=== PATIENT | female | born 1965 | race Caucasian/White ===

== ENCOUNTER 2016-07-27 10:25 | Outpatient (CLI) ==
[2016-06-09 09:27] VITALS: BMI 21.6
--- NOTE | 2016-07-28 11:33 | MAMMO ---
EXAM: Digital screening mammogram HISTORY: Screening mammogram COMPARISON: Mammogram 04/04/2014 and 02/08/2012 FINDINGS: Bilateral CC and MLO views of the breasts were performed digitally and demonstrate scatte red fibroglandular breast density (25 - 50%). There is no abnormal nodule or calcification. There i s no significant interval change. IMPRESSION: There is no new or suspicious nodule or calcification RECOMMENDATION: Annual screening mammogram BIRADS category 1: Negative
== END 2016-07-27 10:26 | disposition home or self-care (01) ==
LOC: RAD 10:25
PROVIDERS: ATTEND Physician Assistant
DX: Z12.31 Encounter for screening mammogram for malignant neoplasm of breast (principal)

== ENCOUNTER 2016-09-10 13:49 | Emergency (ER) ==
[2016-09-10 14:02] VITALS: BP 87/62; TEMP 99.4; BMI 21.9
== END 2016-09-10 15:55 | disposition left against medical advice (07) ==
LOC: ED 13:49
DX: R05 Cough (principal); R07.89 Other chest pain

== ENCOUNTER 2016-09-12 08:58 | Emergency (ER) ==
[2016-09-12 08:59] VITALS: BMI 21.9
[2016-09-12] MEDS ORDERED: DECADRON 4 MG/ML SDV IM STA (09:09)
[2016-09-12] MEDS ORDERED: TORADOL IM STA (09:12)
--- NOTE | 2016-09-12 09:15 | ED.PDOC ---
General ED Provider: Dr. XAVIER CRUZ Chief Complaint: Cough Stated Complaint: coughing, getting some yellow sputum, hurting all over. Time Seen by Physician: 09:13 Mode of Arrival: Walk-In Information Source: Patient Primary Care Provider: FAROOQ CRUZ Nursing and Triage Documentation Reviewed and Agree: Yes Respiratory Complaint Exam - Respiratory Complaint/Exam Symptoms Are: Still present Timing: Constant Initial Severity: Mild Current Severity: Mild Location: Chest Character: Reports: Productive cough Aggravating: Reports: URI Alleviating: Reports: None Associated Signs and Symptoms: Reports: Dyspnea, Fever, Chest pain, URI, Nasal congestion, Hoarseness. Denies: Rapid breathing, Chills, Pleuritic chest pain, Wheezing, Hemoptysis, Dizziness, Calf pain, Calf swelling, Edema, Sinus discomfort, Vomiting, Sore throat, Weight loss, Decreased oral intake, Increased thirst, Increased appetite, Increased urination Related History: Reports: Similar episode History of Healthcare-Acquired Pneumonia: No Related Surgical History: Reports: None Pulmonary Embolism Risk Factors: None Cardiac Risk Factors: Reports: None Pseudomonas Risk Factors: Reports: None Tuberculosis Risk Factors: Reports: None Status Asthmaticus Risk Factors: Reports: None Home Oxygen Use: No Recent Stress Test: No Recent Echo/LV Function: No Current Antibiotic Use: No Current Asthma Medication Use: No Respiratory Distress: None Inadequate Respiratory Effort: No Dysphagia Present: No Stridor Present: No JVD Present: No Accessory Muscle Use: No Retractions: Not Present Diminished Breath Sounds: No Sinus Tenderness: None Grunting Respirations: No Differential Diagnoses: Pneumonia, Bronchitis, Influenza Review of Systems - Review Of Systems Constitutional: Reports: Fever, Malaise, Weakness Eyes: Reports: No symptoms Ears, Nose, Mouth, Throat: Reports: Nose discharge Respiratory: Reports: Cough Cardiac: Reports: No symptoms GI: Reports: No symptoms : Reports: No symptoms Musculoskeletal: Reports: No symptoms Skin: Reports: No symptoms Neurological: Reports: No symptoms Endocrine: Reports: No symptoms Hematologic/Lymphatic: Reports: No symptoms All Other Systems: Reviewed and Negative Past Medical History - Past Medical History Previously Healthy: Yes Endocrine: Reports: None Cardiovascular: Reports: None, Other Respiratory: Reports: None Hematological: Reports: None Gastrointestinal: Reports: None, GERD Genitourinary: Reports: None, UTI Neuro/Psych: Reports: None, Other (vertigo) Musculoskeletal: Reports: None, Back Pain ( muscle relaxer) Cancer: Reports: None Last Menstrual Period: NA Other Pertinent Past Medical History: Fx coccyx; vertigo, Meniere's - Surgical History General Surgical History: Reports: CABG, Other, Unknown - Family History Family History: Reports: Unknown - Social History Smoking Status: Never smoker Hx Substance Use: No Alcohol Screening: Occasionally Physical Exam - Physical Exam Appearance: Ill-appearing, Thin Ill-appearing: Mild Eyes: LUISITO, EOMI, Conjunctiva clear ENT: Ears normal, Nose normal, Oropharynx normal Respiratory: Airway patent, Breath sounds clear, Breath sounds equal, Respirations nonlabored Cardiovascular: RRR, Pulses normal, No rub, No murmur GI/: Soft, Nontender, No masses, Bowel sounds normal, No Organomegaly Musculoskeletal: Normal strength, ROM intact, No edema, No calf tenderness Skin: Warm, Dry, Normal color Neurological: Sensation intact, Motor intact, Reflexes intact, Cranial nerves intact, Alert, Oriented Psychiatric: Affect appropriate, Mood appropriate Interpretation - Radiology Interpretation Radiology Interpretation By: ED Physician Radiology Results: Negative Exam Interpreted: CXR Critical Care Note - Critical Care Note Total Time (mins): 0 Course - Course Orders, Labs, Meds: Lab Review 09/12/16 09:12 Influenza A (Rapid) Negative Influenza B (Rapid) Positive H Orders Category Date Time Status RAPID FLU A/B Stat LAB 09/12/16 09:12 Completed Dexamethasone 4 mg/ml Inj [Decadron 4 mg/ml Sdv] MEDS 09/12/16 09:09 Discontinued 4 mg IM ONCE STA Ketorolac Tromethamine [Toradol] MEDS 09/12/16 09:12 Discontinued 30 mg IM ONCE STA CHEST, 2 VIEWS PA & LAT Stat RADS 09/12/16 09:09 Taken Medications Discontinued Medications Generic Name Dose Route Start Last Admin Trade Name Freq PRN Reason Stop Dose Admin Dexamethasone Sodium Phosphate 4 mg 09/12/16 09:09 09/12/16 09:20 Decadron 4 Mg/Ml Sdv IM 09/12/16 09:10 4 mg ONCE STA Administration Ketorolac Tromethamine 30 mg 09/12/16 09:12 09/12/16 09:20 Toradol IM 09/12/16 09:13 30 mg ONCE STA Administration Vital Signs: Temp Pulse Resp BP Pulse Ox 09/12/16 08:59 99.0 F 75 18 98/67 97 Departure - Departure Time of Disposition: 10:01 Disposition: HOME SELF-CARE Discharge Problem: URTI (acute upper respiratory infection), Influenza due to influenza virus, type B Instructions: Upper Respiratory Infection (ED) Condition: Stable Pt referred to PMD for follow-up: No Additional Instructions: INCREASE HYDRATION TYLENOL PRN Prescriptions: Oseltamivir Phosphate [Tamiflu] 75 mg PO Q12HR #9 cap Codeine/Promethazine Syrup [Phenergan with Codeine 6.25/10 mg/5 ml] 5 ml PO Q8H #1 bottle Prednisone 10 mg PO BIDWM #14 tablet Allergies/Adverse Reactions: Allergies No Known Allergies Allergy (Verified 06/09/16 09:27) Home Medications: Ambulatory Orders Ranitidine HCl [Zantac] 150 mg PO QDAC 01/13/15 Cyclobenzaprine HCl [Flexeril] 5 mg PO TID PRN #15 tablet 06/09/16 Naproxen [Naprosyn] 500 mg PO Q12HR PRN #30 tablet 06/09/16 Codeine/Promethazine Syrup [Phenergan with Codeine 6.25/10 mg/5 ml] 5 ml PO Q8H #1 bottle 09/12/16 Oseltamivir Phosphate [Tamiflu] 75 mg PO Q12HR #9 cap 09/12/16 Prednisone 10 mg PO BIDWM #14 tablet 09/12/16 Disposition Discussed With: Patient
[2016-09-12 09:29] VITALS: BP 98/67; TEMP 99
[2016-09-12 09:29] LABS: FLU INTERNAL QC INTERNAL QC VALID; RAPID FLU A NEGATIVE (NEGATIVE); RAPID FLU B POSITIVE (NEGATIVE)
[2016-09-12] MEDS ORDERED: TAMIFLU PO STA (10:01)
--- NOTE | 2016-09-12 10:23 | DI ---
Examination: Two radiographic images of the chest. Comparison: CT scan performed 11/06/2015. Reason for study: Cough. FINDINGS: No pneumothorax, pleural effusion, or focal consolidation. The cardiac silhouette is not enlarged. The osseous structures are unremarkable. Impression: No acute cardiopulmonary process.
== END 2016-09-12 10:13 | disposition home or self-care (01) ==
LOC: ED 08:58
DX: J10.1 Influenza due to other identified influenza virus with other respiratory manifestations (principal); J06.9 Acute upper respiratory infection, unspecified
CPT/HCPCS: 87804; 96372; 99284

== ENCOUNTER 2016-11-05 09:58 | Emergency (ER) ==
[2016-11-05 10:04] VITALS: BP 112/68; TEMP 99; BMI 23.1
[2016-11-05] MEDS ORDERED: DECADRON 4 MG/ML SDV IM STA (10:14)
[2016-11-05] MEDS ORDERED: BENADRYL IM STA (10:14)
--- NOTE | 2016-11-05 10:17 | ED.PDOC ---
General ED Provider: Dr. PRESLEY SORENSEN Chief Complaint: Rash Stated Complaint: rash face only Time Seen by Physician: 10:00 (may present at all times ) Mode of Arrival: Walk-In Information Source: Patient Exam Limitations: No limitations Primary Care Provider: FAROOQ CRUZ Nursing and Triage Documentation Reviewed and Agree: Yes (stated she had smelled a bao plant / gonzalez) Skin Complaint Exam - Skin Rash/Itching Complaint/Exam Onset/Duration: rash/ face only itching Symptoms Are: Still present Initial Severity: Mild Current Severity: Mild Potential Exposures: Reports: Unknown Aggravating: Reports: None Alleviating: Reports: None Associated Signs and Symptoms: Denies: Difficulty breathing, Fever, Chills Related History: Similar episode Skin Findings: Present: Normal findings Differential Diagnoses: Allergic Reaction Review of Systems - Review Of Systems Constitutional: Reports: No symptoms Eyes: Reports: No symptoms Ears, Nose, Mouth, Throat: Reports: No symptoms Respiratory: Reports: No symptoms Cardiac: Reports: No symptoms GI: Reports: No symptoms : Reports: No symptoms Musculoskeletal: Reports: No symptoms Skin: Reports: Rash Neurological: Reports: No symptoms Endocrine: Reports: No symptoms Hematologic/Lymphatic: Reports: No symptoms All Other Systems: Reviewed and Negative Past Medical History - Past Medical History Previously Healthy: Yes Endocrine: Reports: None Cardiovascular: Reports: None, Other Respiratory: Reports: None Hematological: Reports: None Gastrointestinal: Reports: None, GERD Genitourinary: Reports: None, UTI Neuro/Psych: Reports: None, Other (vertigo) Musculoskeletal: Reports: None, Back Pain ( muscle relaxer) Cancer: Reports: None Last Menstrual Period: menopause Other Pertinent Past Medical History: Fx coccyx; vertigo, Meniere's - Surgical History General Surgical History: Reports: CABG, Other, Unknown - Family History Family History: Reports: Unknown - Social History Smoking Status: Never smoker Hx Substance Use: No Alcohol Screening: Occasionally - Immunizations Tetanus Shot up to Date: (not sure) Physical Exam - Physical Exam Appearance: Well-appearing, No pain distress, Well-nourished Eyes: LUISITO, EOMI, Conjunctiva clear ENT: Ears normal, Nose normal, Oropharynx normal Respiratory: Airway patent, Breath sounds clear, Breath sounds equal, Respirations nonlabored Cardiovascular: RRR, Pulses normal, No rub, No murmur GI/: Soft, Nontender, No masses, Bowel sounds normal, No Organomegaly Musculoskeletal: Normal strength, ROM intact, No edema, No calf tenderness Skin: Warm, Dry (rash face see photos) Neurological: Sensation intact, Motor intact, Reflexes intact, Cranial nerves intact, Alert, Oriented Psychiatric: Affect appropriate, Mood appropriate Critical Care Note - Critical Care Note Total Time (mins): 0 Course - Course Orders, Labs, Meds: Orders Category Date Time Status Dexamethasone 4 mg/ml Inj [Decadron 4 mg/ml Sdv] MEDS 11/05/16 10:14 Stat 4 mg IM ONCE STA Diphenhydramine Inj [Benadryl] MEDS 11/05/16 10:14 Stat 25 mg IM ONCE STA Medications Discontinued Medications Generic Name Dose Route Start Last Admin Trade Name Freq PRN Reason Stop Dose Admin Dexamethasone Sodium Phosphate 4 mg 11/05/16 10:14 Decadron 4 Mg/Ml Sdv IM 11/05/16 10:15 ONCE STA Diphenhydramine HCl 25 mg 11/05/16 10:14 Benadryl IM 11/05/16 10:15 ONCE STA Vital Signs: Temp Pulse Resp BP Pulse Ox 11/05/16 09:58 99 F 63 20 112/68 98 Departure - Departure Time of Disposition: 10:17 Disposition: HOME SELF-CARE Discharge Problem: Pruritic rash Instructions: Acute Rash (ED) Condition: Good Pt referred to PMD for follow-up: No Additional Instructions: Please call your Family Physician as soon as possible to schedule a follow-up appointment. Prescriptions: Prednisone 40 mg PO DAILYWM #7 tablet Allergies/Adverse Reactions: Allergies No Known Allergies Allergy (Verified 11/05/16 10:05) Home Medications: Ambulatory Orders Ranitidine HCl [Zantac] 150 mg PO QDAC 01/13/15 Cyclobenzaprine HCl [Flexeril] 5 mg PO TID PRN #15 tablet 06/09/16 Naproxen [Naprosyn] 500 mg PO Q12HR PRN #30 tablet 06/09/16 Fluconazole [Diflucan] 150 mg PO DAILY #5 tablet 09/12/16 Prednisone 40 mg PO DAILYWM #7 tablet 11/05/16
== END 2016-11-05 10:54 | disposition home or self-care (01) ==
LOC: ED 09:58
DX: R21 Rash and other nonspecific skin eruption (principal); L29.9 Pruritus, unspecified
CPT/HCPCS: 96372; 99282

== ENCOUNTER 2016-11-28 14:56 | Emergency (ER) ==
[2016-11-28 15:01] VITALS: BP 103/67; TEMP 97.9; BMI 22.4
[2016-11-28] MEDS ORDERED: DECADRON 4 MG/ML SDV IM STA (15:12)
[2016-11-28] MEDS ORDERED: VALIUM SYRINGE IM STA (15:13)
--- NOTE | 2016-11-28 15:17 | ED.PDOC ---
General ED Provider: Dr. XAVIER CRUZ Chief Complaint: Dizziness Stated Complaint: Been dizzi, has h/o minieres, out of medications, Seen Dr SCHAFER IN THE PAST. Time Seen by Physician: 15:15 Mode of Arrival: Walk-In Information Source: Patient Primary Care Provider: FAROOQ CRUZ Nursing and Triage Documentation Reviewed and Agree: Yes Neurological Complaint Exam - Dizziness Complaint/Exam Onset: Gradual Symptoms Are: Still present Timing: Constant Episodes Lasting: Hours Initial Severity: Moderate Current Severity: Moderate Character: Reports: Room spinning, Lightheaded Aggravating: Reports: Position change, Supine to erect, Change in head position Alleviating: Reports: None Associated Signs and Symptoms: Reports: Nausea. Denies: Vomiting, Diaphoresis, Tinnitus, Chest pain, Short of air, Palpitations, Unsteady gait, GI blood loss, Visual changes, Decreased oral intake, Change in medication, Change in diet, OTC meds, Loss of balance Related History: Similar episode Cardiac Risk Factors: Reports: Hypertension CVA Risk Factors: Reports: None Related Surgical History: Reports: None JVD Present: No Carotid Bruit Present: No Rectal Heme Positive: No Focal Weakness: Present: None Focal Sensory Loss: Present: None Gait: Normal [id number]: Normal Findings Romberg Test Positive: No Babinski Sign: Negative Right, Negative Left Heel to Toe Normal: No Carlisle-Hallpike Test Positive: No Differential Diagnoses: Meniere's, Metabolic abnormalities Review of Systems - Review Of Systems Constitutional: Reports: Malaise, Weakness Eyes: Reports: No symptoms Ears, Nose, Mouth, Throat: Reports: No symptoms Respiratory: Reports: No symptoms Cardiac: Reports: No symptoms GI: Reports: No symptoms : Reports: No symptoms Musculoskeletal: Reports: No symptoms Skin: Reports: No symptoms Neurological: Reports: Weakness Endocrine: Reports: No symptoms Hematologic/Lymphatic: Reports: No symptoms All Other Systems: Reviewed and Negative Past Medical History - Past Medical History Previously Healthy: Yes Endocrine: Reports: None Cardiovascular: Reports: None, Other Respiratory: Reports: None Hematological: Reports: None Gastrointestinal: Reports: None, GERD Genitourinary: Reports: None, UTI Neuro/Psych: Reports: None, Other (vertigo) Musculoskeletal: Reports: None, Back Pain ( muscle relaxer) Cancer: Reports: None Last Menstrual Period: 2002 Other Pertinent Past Medical History: Fx coccyx; vertigo, Meniere's - Surgical History General Surgical History: Reports: CABG, Other, Unknown - Family History Family History: Reports: Unknown - Social History Smoking Status: Never smoker Smoking Cessation Counseling Time: > 3 min - 10 min Hx Substance Use: No Alcohol Screening: Occasionally - Immunizations Tetanus Shot up to Date: (unknown) Physical Exam - Physical Exam Appearance: Ill-appearing, No pain distress, Well-nourished, Thin Ill-appearing: Mild Eyes: LUISITO, EOMI, Conjunctiva clear ENT: Ears normal, Nose normal, Oropharynx normal Respiratory: Airway patent, Breath sounds clear, Breath sounds equal, Respirations nonlabored Cardiovascular: RRR, Pulses normal, No rub, No murmur GI/: Soft, Nontender, No masses, Bowel sounds normal, No Organomegaly Musculoskeletal: Normal strength, ROM intact, No edema, No calf tenderness Skin: Warm, Dry, Normal color Neurological: Sensation intact, Motor intact, Reflexes intact, Cranial nerves intact, Alert, Oriented Psychiatric: Affect appropriate, Mood appropriate Critical Care Note - Critical Care Note Total Time (mins): 0 Course - Course Hematology/Chemistry: 11/28/16 15:25 11/28/16 15:25 Orders, Labs, Meds: Lab Review 11/28/16 15:25 WBC 5.78 RBC 4.28 Hgb 13.5 Hct 38.6 MCV 90.2 MCH 31.5 H MCHC 35.0 RDW Coeff of Eulalia 13.4 Plt Count 270 Immature Gran % (Auto) 0.2 Neut % (Auto) 50.4 Lymph % (Auto) 38.6 Ransom % (Auto) 8.3 Eos % (Auto) 2.2 Baso % (Auto) 0.3 Immature Gran # (Auto) 0.0 Neut # 2.9 Lymph # 2.2 Ransom # 0.5 Eos # 0.1 Baso # 0.0 Sodium 139 Potassium 3.7 Chloride 106 Carbon Dioxide 23 Anion Gap 13.7 BUN 8 Creatinine 0.81 Estimated GFR (MDRD) 74.00 BUN/Creatinine Ratio 9.87 Glucose 119 H Calcium 9.5 Total Bilirubin 0.33 AST 17 ALT 7 L Alkaline Phosphatase 89 Total Protein 7.0 Albumin 3.8 Globulin 3.2 Albumin/Globulin Ratio 1.19 Orders Category Date Time Status EKG-(ED ONLY) Stat CARDIO 11/28/16 15:11 Completed CBC W/ AUTO DIFF Stat LAB 11/28/16 15:25 Completed COMPREHENSIVE METABOLIC PANEL Stat LAB 11/28/16 15:25 Completed Dexamethasone 4 mg/ml Inj [Decadron 4 mg/ml Sdv] MEDS 11/28/16 15:12 Discontinued 4 mg IM ONCE STA Diazepam Syringe [Valium Syringe] MEDS 11/28/16 15:13 Discontinued 2 mg IM ONCE STA CT HEAD W/O CONTRAST Stat RADS 11/28/16 15:11 Completed Medications Discontinued Medications Generic Name Dose Route Start Last Admin Trade Name Jimmie PRN Reason Stop Dose Admin Dexamethasone Sodium Phosphate 4 mg 11/28/16 15:12 11/28/16 15:37 Decadron 4 Mg/Ml Sdv IM 11/28/16 15:13 4 mg ONCE STA Administration Diazepam 2 mg 11/28/16 15:13 11/28/16 15:36 Valium Syringe IM 11/28/16 15:14 2 mg ONCE STA Administration Vital Signs: Temp Pulse Resp BP Pulse Ox 11/28/16 14:56 97.9 F 72 20 103/67 98 Departure - Departure Time of Disposition: 14:55 Disposition: HOME SELF-CARE Discharge Problem: Dizziness Instructions: Meniere Disease (ED) Condition: Stable Pt referred to PMD for follow-up: Yes Additional Instructions: Increase hydration F/u at [facility] 3-4 days Prescriptions: Diazepam 2 mg PO BID #10 tablet Prednisone 10 mg PO BIDWM #14 tablet Allergies/Adverse Reactions: Allergies No Known Allergies Allergy (Verified 11/28/16 15:03) Home Medications: Ambulatory Orders Cyclobenzaprine HCl [Flexeril] 5 mg PO TID PRN #15 tablet 06/09/16 Prednisone 40 mg PO DAILYWM #7 tablet 11/05/16 Diazepam 2 mg PO BID #10 tablet 11/28/16 Esomeprazole Magnesium [Nexium] 40 mg PO DAILY 11/28/16 Prednisone 10 mg PO BIDWM #14 tablet 11/28/16 Hydrochlorothiazide 25 mg PO DAILY #50 11/30/16 Valium 2 mg PO 2-3XD PRN #100 11/30/16 Disposition Discussed With: Patient
[2016-11-28 15:31] LABS: BASOPHILS % (AUTO) 0.3 % (0.0-3.0); EOSINOPHILS # (AUTO) 0.1 K/ul (0.0-0.7); EOSINOPHILS % (AUTO) 2.2 % (0.0-7.0); HEMATOCRIT 38.6 % (37.0-47.0); HEMOGLOBIN 13.5 g/dl (12.0-16.0); IMMATURE GRANULOCYTE % (AUTO) 0.2 % (0.0-5.0); LYMPHOCYTES # (AUTO) 2.2 K/uL (0.60-3.4); LYMPHOCYTES % (AUTO) 38.6 (10.0-50.0); MEAN CORPUSCULAR HEMOGLOBIN 31.5 pg (27.0-31.0); MEAN CORPUSCULAR VOLUME 90.2 fl (81.0-99.0); MONOCYTES # (AUTO) 0.5 K/uL (0.4-2.0); MONOCYTES % (AUTO) 8.3 (0-10); NEUTROPHILS # (AUTO) 2.9 K/ul (2.0-6.9); NEUTROPHILS % (AUTO) 50.4; PLATELET COUNT 270 10^3/uL (140-440); RED BLOOD COUNT 4.28 10^6/ul (4.20-5.40); WHITE BLOOD COUNT 5.78 K/ul (4.6-10.2)
--- NOTE | 2016-11-28 15:34 | CT ---
Exam: CT brain without contrast Clinical indication: Dizziness. Comparison: 11/06/2015. TECHNIQUE: Axial unenhanced CT images from the skull base through the brain were obtained. Coronal and sagital reformats were performed. Findings: There is no evidence of intra or extra-axial hemorrhage. There is no evidence of mass, infarct or midline shift. The ventricles and basilar cisterns are within normal limits. The visualized paranasal sinuses and mastoid air cells are clear. The visualized bony structures are unremarkable. Impression: Negative unenhanced CT of the brain.
[2016-11-28 15:51] LABS: ALBUMIN 3.8 g/dL (3.4-5.0); ALBUMIN/GLOBULIN RATIO 1.19; ANION GAP 13.7; BILIRUBIN,TOTAL 0.33 mg/dL (0.00-1.20); BUN/CREATININE RATIO 9.87; CALCIUM 9.5 mg/dL (8.2-10.2); CREATININE 0.81 mg/dL (0.60-1.30); POTASSIUM 3.7 mmol/L (3.5-5.10)
== END 2016-11-28 16:28 | disposition home or self-care (01) ==
LOC: ED 14:56
DX: R42 Dizziness and giddiness (principal); H81.09 Meniere's disease, unspecified ear; R11.0 Nausea; I10 Essential (primary) hypertension; R53.1 Weakness; Z79.899 Other long term (current) drug therapy
CPT/HCPCS: 36415; 80053; 85025; 93005; 93010; 96372; 99283

== ENCOUNTER → 2016-11-30 | Outpatient (POV) ==
[2016-11-28 15:01] VITALS: BMI 22.4
== END ==
LOC: OUTPT 00:01
PROVIDERS: ATTEND Otolaryngology
DX: R42 Dizziness and giddiness (principal)
CPT/HCPCS: 92557; 92567

== ENCOUNTER 2016-12-02 07:56 | Emergency (ER) ==
[2016-12-02 07:57] VITALS: BMI 22.4
[2016-12-02 08:11] VITALS: BP 106/73; TEMP 98.2
[2016-12-02] MEDS ORDERED: ZOFRAN 4 MG/2 ML IVP STA (08:26)
[2016-12-02] MEDS ORDERED: SODIUM CHLORIDE 1,000 ML IV STA ×2 (08:27→10:10)
[2016-12-02 08:39] LABS: BASOPHILS % (AUTO) 0.3 % (0.0-3.0); EOSINOPHILS % (AUTO) 0.4 % (0.0-7.0); HEMATOCRIT 43.1 % (37.0-47.0); HEMOGLOBIN 14.9 g/dl (12.0-16.0); IMMATURE GRANULOCYTE % (AUTO) 0.3 % (0.0-5.0); LYMPHOCYTES # (AUTO) 2.2 K/uL (0.60-3.4); MEAN CORPUSCULAR HGB CONC 34.6 (31.8-35.4); MEAN CORPUSCULAR VOLUME 89.6 fl (81.0-99.0); MONOCYTES # (AUTO) 0.5 K/uL (0.4-2.0); PLATELET COUNT 308 10^3/uL (140-440); RED BLOOD COUNT 4.81 10^6/ul (4.20-5.40); WHITE BLOOD COUNT 6.71 K/ul (4.6-10.2)
[2016-12-02 08:58] LABS: ALBUMIN 4.5 g/dL (3.4-5.0); ALBUMIN/GLOBULIN RATIO 1.25; ANION GAP 15.6; BILIRUBIN,TOTAL 0.61 mg/dL (0.00-1.20); BUN/CREATININE RATIO 13.68; CALCIUM 10.3 mg/dL (8.2-10.2); CREATININE 0.95 mg/dL (0.60-1.30); POTASSIUM 3.6 mmol/L (3.5-5.10); TOTAL PROTEIN 8.1 g/dL (6.4-8.2)
--- NOTE | 2016-12-02 12:18 | ED.PDOC ---
General ED Provider: Dr. PRESLEY SORENSEN Chief Complaint: Dizziness Stated Complaint: dizziness Time Seen by Physician: 08:00 (history of minere) Mode of Arrival: Wheelchair Information Source: Patient Exam Limitations: No limitations Primary Care Provider: FAROOQ CRUZ Nursing and Triage Documentation Reviewed and Agree: Yes Neurological Complaint Exam - Dizziness Complaint/Exam Onset: Gradual Duration: chronic worse today Symptoms Are: Still present Timing: Intermittent Episodes Lasting: Hours Initial Severity: Severe Current Severity: Severe Character: Reports: Lightheaded, Weak Aggravating: Reports: Exertion, Headache Alleviating: Reports: Rest Associated Signs and Symptoms: Reports: Nausea. Denies: Vomiting, Diaphoresis, Tinnitus, Chest pain, Short of air, Palpitations, Unsteady gait, GI blood loss, Visual changes, Decreased oral intake, Change in medication, Change in diet, OTC meds, Loss of balance Related History: Similar episode Cardiac Risk Factors: Reports: None CVA Risk Factors: Reports: None JVD Present: No Carotid Bruit Present: No Rectal Heme Positive: No Glascow Coma Scale (see protocol): 15 Nystagmus Present: No Gag Reflex Present: Yes Meningeal Signs Positive: No Focal Weakness: Present: None Focal Sensory Loss: Present: None Gait: Unable Babinski Sign: Negative Right, Negative Left Differential Diagnoses: Hypovolemia Quality Indicators for Cardiac Chest Pain: EKG in 10min. Quality Indicators for AMI: EKG in 10min. Quality Indicator For Non-Traumatic Chest Pain/Syncope: EKG Performed Review of Systems - Review Of Systems Constitutional: Reports: No symptoms Eyes: Reports: No symptoms Ears, Nose, Mouth, Throat: Reports: No symptoms Respiratory: Reports: No symptoms Cardiac: Reports: No symptoms GI: Reports: No symptoms : Reports: No symptoms Musculoskeletal: Reports: No symptoms Skin: Reports: No symptoms Neurological: Reports: Other (dizziness ) Endocrine: Reports: No symptoms Hematologic/Lymphatic: Reports: No symptoms All Other Systems: Reviewed and Negative Past Medical History - Past Medical History Previously Healthy: Yes Endocrine: Reports: None Cardiovascular: Reports: None, Other Respiratory: Reports: None Hematological: Reports: None Gastrointestinal: Reports: None, GERD Genitourinary: Reports: None, UTI Neuro/Psych: Reports: None, Other (vertigo) Musculoskeletal: Reports: None, Back Pain ( muscle relaxer) Cancer: Reports: None Last Menstrual Period: 14 years Other Pertinent Past Medical History: Fx coccyx; vertigo, Meniere's - Surgical History General Surgical History: Reports: CABG, Other, Unknown - Family History Family History: Reports: Unknown - Social History Smoking Status: Never smoker Hx Substance Use: No Alcohol Screening: Occasionally Physical Exam - Physical Exam Appearance: Well-appearing, No pain distress, Well-nourished Eyes: LUISITO, EOMI, Conjunctiva clear ENT: Ears normal, Nose normal, Oropharynx normal Respiratory: Airway patent, Breath sounds clear, Breath sounds equal, Respirations nonlabored Cardiovascular: RRR, Pulses normal, No rub, No murmur GI/: Soft, Nontender, No masses, Bowel sounds normal, No Organomegaly Musculoskeletal: Normal strength, ROM intact, No edema, No calf tenderness Skin: Warm, Dry, Normal color Neurological: Sensation intact, Motor intact, Reflexes intact, Cranial nerves intact, Alert, Oriented Psychiatric: Affect appropriate, Mood appropriate Interpretation - Er Rn Rate: Normal Rhythm: Sinus Ectopy: None - EKG Interpretation Rate: Normal Rhythm: Sinus Re-Evaluation - Re-Evaluation Time of Re-Evaluation: 10:00 Status: Improved Vital Signs Stable: Yes Pain Level: 0 Appearance: NAD Lungs: Clear Skin: Warm and Dry Neuro: Alert and Oriented X3 CV: RRR - Re-Evaluation Time of Re-Evaluation: 12:19 Status: Improved Vital Signs Stable: Yes Pain Level: 0 Appearance: NAD Skin: Warm and Dry Neuro: Alert and Oriented X3 CV: RRR Critical Care Note - Critical Care Note Total Time (mins): 0 Course - Course Hematology/Chemistry: 12/02/16 08:30 12/02/16 08:30 Orders, Labs, Meds: Lab Review 12/02/16 08:30 WBC 6.71 RBC 4.81 Hgb 14.9 Hct 43.1 MCV 89.6 MCH 31.0 MCHC 34.6 RDW Coeff of Eul[place] 13.3 Plt Count 308 Immature Gran % (Auto) 0.3 Neut % (Auto) 60.0 Lymph % (Auto) 32.0 [place] % (Auto) 7.0 Eos % (Auto) 0.4 Baso % (Auto) 0.3 Immature Gran # (Auto) 0.0 Neut # 4.0 Lymph # 2.2 [place] # 0.5 Eos # 0.0 Baso # 0.0 Sodium 139 Potassium 3.6 Chloride 102 Carbon Dioxide 25 Anion Gap 15.6 BUN 13 Creatinine 0.95 Estimated GFR (MDRD) 62.00 BUN/Creatinine Ratio 13.68 Glucose 109 Calcium 10.3 H Total Bilirubin 0.61 AST 21 ALT 10 L Alkaline Phosphatase 92 Total Protein 8.1 Albumin 4.5 Globulin 3.6 Albumin/Globulin Ratio 1.25 Orders Category Date Time Status EKG-(ED ONLY) Stat CARDIO 12/02/16 08:25 Completed ED IV/MEDIPORT/POWERPORT .ONCE EMERGENCY 12/02/16 08:26 Active CBC W/ AUTO DIFF Stat LAB 12/02/16 08:30 Completed COMPREHENSIVE METABOLIC PANEL Stat LAB 12/02/16 08:30 Completed 0.9 % Sodium Chloride [Saline Flush] MEDS 12/02/16 08:26 Active 1 syr IVF PRN PRN Ondansetron HCl/Pf [Zofran 4 mg/2 ml] MEDS 12/02/16 08:26 Discontinued 4 mg IVP ONCE STA Sodium Chloride 0.9% [Sodium Chloride] 1,000 ml MEDS 12/02/16 10:10 Active IV 30 mls/hr Sodium Chloride 0.9% [Sodium Chloride] 1,000 ml MEDS 12/02/16 08:27 Discontinued IV BOLUS Medications Generic Name Dose Route Start Last Admin Trade Name Freq PRN Reason Stop Dose Admin Sodium Chloride 1,000 mls @ 30 mls/hr 12/02/16 10:10 12/02/16 10:46 Sodium Chloride IV 12/03/16 19:29 30 mls/hr .[id number] STA Administration Sodium Chloride 1 syr 12/02/16 08:26 12/02/16 08:45 Saline Flush IVF 1 syr PRN PRN Administration To flush IV Discontinued Medications Generic Name Dose Route Start Last Admin Trade Name Freq PRN Reason Stop Dose Admin Sodium Chloride 1,000 mls @ 1,000 mls/hr 12/02/16 08:27 12/02/16 08:45 Sodium Chloride IV 12/02/16 09:26 1,000 mls/hr BOLUS STA Administration Ondansetron HCl 4 mg 12/02/16 08:26 12/02/16 08:45 Zofran 4 Mg/2 Ml IVP 12/02/16 08:27 4 mg ONCE STA Administration Vital Signs: Temp Pulse Resp BP Pulse Ox 12/02/16 07:57 98.2 F 75 24 106/73 94 L Departure - Departure Time of Disposition: 12:19 Disposition: HOME SELF-CARE Discharge Problem: Dizziness, Vertigo Instructions: Vertigo (ED), Dizziness (ED) Condition: Good Pt referred to PMD for follow-up: No Additional Instructions: Please call your Family Physician as soon as possible to schedule a follow-up appointment. Allergies/Adverse Reactions: Allergies No Known Allergies Allergy (Verified 12/02/16 08:06) Home Medications: Ambulatory Orders Esomeprazole Magnesium [Nexium] 40 mg PO DAILY 11/28/16 Prednisone 10 mg PO BIDWM #14 tablet 11/28/16 Hydrochlorothiazide 25 mg PO DAILY #50 11/30/16 Valium 2 mg PO 2-3XD PRN #100 11/30/16 Disposition Discussed With: Patient
== END 2016-12-02 13:00 | disposition home or self-care (01) ==
LOC: ED 07:56
DX: R42 Dizziness and giddiness (principal)
CPT/HCPCS: 36415; 80053; 85025; 93005; 93010; 96361; 96374; 99283

== ENCOUNTER 2017-02-05 20:41 | Outpatient (CLI) ==
[2017-02-05 21:12] VITALS: BMI 24.2
== END 2017-02-05 20:42 | disposition home or self-care (01) ==
LOC: AMBL 20:41
PROVIDERS: ATTEND Internal Medicine Geriatric Medicine
DX: R11.2 Nausea with vomiting, unspecified (principal); R10.9 Unspecified abdominal pain; R42 Dizziness and giddiness

== ENCOUNTER 2017-02-05 21:01 | Emergency (ER) ==
[2017-02-05 21:12] VITALS: TEMP 97.9; BMI 24.2
[2017-02-05 21:31] LABS: BASOPHILS % (AUTO) 0.3 % (0.0-3.0); EOSINOPHILS # (AUTO) 0.1 K/ul (0.0-0.7); EOSINOPHILS % (AUTO) 1.2 % (0.0-7.0); IMMATURE GRANULOCYTE % (AUTO) 0.4 % (0.0-5.0); LYMPHOCYTES # (AUTO) 1.9 K/uL (0.60-3.4); LYMPHOCYTES % (AUTO) 18.3 (10.0-50.0); MEAN CORPUSCULAR HEMOGLOBIN 31.6 pg (27.0-31.0); MEAN CORPUSCULAR HGB CONC 35.1 (31.8-35.4); MONOCYTES # (AUTO) 0.7 K/uL (0.4-2.0); MONOCYTES % (AUTO) 7.1 (0-10); NEUTROPHILS # (AUTO) 7.5 K/ul (2.0-6.9); NEUTROPHILS % (AUTO) 72.7; PLATELET COUNT 238 10^3/uL (140-440); RED BLOOD COUNT 4.11 10^6/ul (4.20-5.40); WHITE BLOOD COUNT 10.33 K/ul (4.6-10.2)
[2017-02-05 21:34] VITALS: BP 116/80
--- NOTE | 2017-02-05 21:38 | ED.PDOC ---
General ED Provider: Dr. RANJITH CEDILLO Chief Complaint: Abdominal Pain Stated Complaint: Patient is a 52 year old female who comes by ambulace with complains of Abdominal Pain, N/V, with fever and chills. Time Seen by Physician: 21:00 Mode of Arrival: Ambulance Information Source: Patient, EMT Exam Limitations: No limitations Primary Care Provider: FAROOQ CRUZ Nursing and Triage Documentation Reviewed and Agree: Yes GI Complaint Exam - Abdominal Pain Complaint/Exam Onset: Gradual Duration: 1 day Symptoms Are: Still present Timing: Constant Initial Severity: Severe Current Severity: Severe Location of Pain: Diffuse Radiates To: Denies: Chest, Back, Flank, LLQ, RLQ, Inguinal Character: Reports: Aching, Cramping Aggravating: Reports: Food Alleviating: Reports: None Associated Signs and Symptoms: Reports: Fever, Nausea, Vomiting. Denies: Diaphoresis, Cough, Chest pain, Dizziness, Back pain, Constipation, Blood in stool, Dysuria, Urinary frequency, Decreased urine output, Decreased appetite, Vaginal bleeding, Vaginal discharge, Diarrhea, Sore throat, Decreased activity Review of Systems - Review Of Systems Constitutional: Reports: Fever, Weakness, Loss of appetite Eyes: Reports: No symptoms Ears, Nose, Mouth, Throat: Reports: No symptoms Respiratory: Reports: No symptoms Cardiac: Reports: Lightheadedness GI: Reports: Abdominal pain, Nausea, Vomiting Neurological: Reports: Anxiety Endocrine: Reports: No symptoms Hematologic/Lymphatic: Reports: No symptoms All Other Systems: Reviewed and Negative Past Medical History - Past Medical History Previously Healthy: Yes Endocrine: Reports: None Cardiovascular: Reports: None, Other Respiratory: Reports: None Hematological: Reports: None Gastrointestinal: Reports: GERD Genitourinary: Reports: UTI Neuro/Psych: Reports: None, Other (vertigo) Musculoskeletal: Reports: None, Back Pain ( muscle relaxer) Cancer: Reports: None Last Menstrual Period: several years ago Other Pertinent Past Medical History: Fx coccyx; vertigo, Meniere's - Surgical History General Surgical History: Reports: CABG, Other, Unknown - Family History Family History: Reports: Unknown - Social History Smoking Status: Never smoker Hx Substance Use: No Alcohol Screening: Occasionally - Immunizations Tetanus Shot up to Date: Yes Physical Exam - Physical Exam Appearance: Ill-appearing Ill-appearing: Moderate Pain Distress: Moderate Eyes: LUISITO, EOMI, Conjunctiva clear ENT: Ears normal, Nose normal, Oropharynx normal Neck: Supple Respiratory: Airway patent, Breath sounds clear, Breath sounds equal, Respirations nonlabored Cardiovascular: RRR, Pulses normal, No rub GI/: Soft, No masses, Bowel sounds normal, No Organomegaly, Tender (mild diffuse) Musculoskeletal: Normal strength, ROM intact, No edema, No calf tenderness Skin: Warm Neurological: Sensation intact Psychiatric: Anxious Interpretation - Radiology Interpretation Radiology Interpretation By: Radiologist Radiology Results: Negative Exam Interpreted: CT Scan (Head and abdomen ) - Smt Operator Rate: Normal Rhythm: Sinus Ectopy: None - EKG Interpretation Time of EKG #1: 21:54 Rate: Normal Rhythm: Sinus Ectopy: None [place]: NL ST Segment: Normal Interpretation: [address] block. Q-T interval 492 Re-Evaluation - Re-Evaluation Time of Re-Evaluation: 00:00 Status: Improved Pain Level: better Appearance: NAD Lungs: Clear Neuro: Alert and Oriented X3 Critical Care Note - Critical Care Note Total Time (mins): 40 Course - Course Hematology/Chemistry: 02/05/17 21:25 02/05/17 21:25 Orders, Labs, Meds: Lab Review 02/05/17 02/05/17 21:25 23:00 WBC 10.33 H RBC 4.11 L Hgb 13.0 Hct 37.0 MCV 90.0 MCH 31.6 H MCHC 35.1 RDW Coeff of [place] 12.7 Plt Count 238 Immature Gran % (Auto) 0.4 Neut % (Auto) 72.7 Lymph % (Auto) 18.3 [place] % (Auto) 7.1 Eos % (Auto) 1.2 Baso % (Auto) 0.3 Immature Gran # (Auto) 0.0 Neut # 7.5 H Lymph # 1.9 [place] # 0.7 Eos # 0.1 Baso # 0.0 Sodium 139 Potassium 3.3 L Chloride 103 Carbon Dioxide 23 Anion Gap 16.3 BUN 9 Creatinine 0.91 Estimated GFR (MDRD) 64.00 BUN/Creatinine Ratio 9.89 Glucose 104 Lactic Acid 15.4 Calcium 9.3 Total Bilirubin 0.28 AST 25 ALT 10 L Alkaline Phosphatase 83 Troponin I < 0.0100 Total Protein 7.2 Albumin 3.9 Globulin 3.3 Albumin/Globulin Ratio 1.18 Procalcitonin < 0.05 Urine Color Yellow Urine Clarity Clear Urine pH 7.5 Ur Specific [place] 1.020 Urine Protein Negative Urine Glucose (UA) Negative Urine Ketones Negative Urine Blood Negative Urine Nitrite Negative Urine Bilirubin Negative Urine Urobilinogen 0.2 Ur Leukocyte Esterase Negative Orders Category Date Time Status EKG-(ED ONLY) Stat CARDIO 02/05/17 21:36 Completed IV ACCESS ONCE CARE 02/05/17 21:03 Active ED APPLY O2 .ONCE EMERGENCY 02/05/17 21:03 Active ED PROSPECTING DRILLER HELPER APPLIED .ONCE EMERGENCY 02/05/17 21:03 Active ED VITAL SIGNS Q1HR EMERGENCY 02/05/17 21:03 Active BLOOD CULTURE Stat LAB 02/05/17 21:25 Received CBC W/ AUTO DIFF Stat LAB 02/05/17 21:25 Completed COMPREHENSIVE METABOLIC PANEL Stat LAB 02/05/17 21:25 Completed LACTIC ACID Stat LAB 02/05/17 21:25 Completed PROCALCITONIN Stat LAB 02/05/17 21:25 Completed TROPONIN I Stat LAB 02/05/17 21:25 Completed URINALYSIS C & S IF INDICATED Stat LAB 02/05/17 23:00 Completed Dicyclomine Inj [Bentyl] MEDS 02/05/17 22:10 Discontinued 20 mg IM ONCE STA Ketorolac Tromethamine [Toradol] MEDS 02/05/17 22:09 Discontinued 30 mg IVP ONCE STA Morphine Sulfate [Morphine 4 mg/ml Syringe] MEDS 02/05/17 22:37 Discontinued 4 mg IVP ONCE STA Pantoprazole Sodium [Protonix IV] MEDS 02/05/17 22:38 Discontinued 40 mg IVP ONCE STA Promethazine HCl [Phenergan 25 mg/ml Vial] MEDS 02/05/17 22:41 Discontinued 25 mg .ROUTE .STK-MED ONE Promethazine HCl [Phenergan 25 mg/ml Vial] 25 mg MEDS 02/05/17 22:37 Discontinued 0.9 % Sodium Chloride [Sodium Chloride] 50 ml IV ONCE Sodium Chloride 0.9% [Sodium Chloride] 1,000 ml MEDS 02/05/17 22:37 Discontinued IV BOLUS CHEST, 1V AP ONLY Stat RADS 02/05/17 21:[address] ABDOMEN/PELVIS WO CONTRAST Stat RADS 02/05/17 21:[address] HEAD W/O CONTRAST Stat RADS 02/05/17 21:35 Completed Medications Discontinued Medications Generic Name Dose Route Start Last Admin Trade Name Freq PRN Reason Stop Dose Admin Dicyclomine HCl 20 mg 02/05/17 22:10 02/05/17 22:25 Bentyl IM 02/05/17 22:11 20 mg ONCE STA Administration Promethazine HCl 25 mg/ Sodium 51 mls @ 75 mls/hr 02/05/17 22:37 02/05/17 23: 15 Chloride IV 02/05/17 23:17 75 mls/hr ONCE STA Administration Sodium Chloride 1,000 mls @ 1,000 mls/hr 02/05/17 22:37 02/05/17 23:15 Sodium Chloride IV 02/05/17 23:36 1,000 mls/hr BOLUS STA Administration Ketorolac Tromethamine 30 mg 02/05/17 22:09 02/05/17 22:25 Toradol IVP 02/05/17 22:10 30 mg ONCE STA Administration Morphine Sulfate 4 mg 02/05/17 22:37 02/05/17 23:14 Morphine 4 Mg/Ml Syringe IVP 02/05/17 22:38 4 mg ONCE STA Administration Pantoprazole Sodium 40 mg 02/05/17 22:38 02/05/17 23:15 Protonix Iv IVP 02/05/17 22:39 40 mg ONCE STA Administration Vital Signs: Temp Pulse Resp BP Pulse Ox 02/05/17 21:33 97.9 F 68 18 116/80 97 02/05/17 21:01 97.9 F 95 H 24 130/79 98 Departure - Departure Time of Disposition: 00:00 Disposition: HOME SELF-CARE Discharge Problem: Abdominal pain, Vertigo Instructions: Vertigo (ED), Abdominal Pain (ED) Condition: Fair Pt referred to PMD for follow-up: Yes Additional Instructions: Push fluids Rest Follow up with PCP in 3 days Take medications for Vertigo as needed Prescriptions: Dicyclomine HCl [Bentyl] 10 mg PO TID PRN #15 capsule PRN Reason: abdominal cramping Meclizine HCl 12.5 mg PO TID PRN #14 tablet PRN Reason: Dizziness Ondansetron HCl [Zofran Tab] 8 mg PO Q8H PRN #15 tablet PRN Reason: Nausea / Vomiting Allergies/Adverse Reactions: Allergies No Known Allergies Allergy (Verified 02/05/17 21:10) Home Medications: Ambulatory Orders Esomeprazole Magnesium [Nexium] 40 mg PO DAILY 11/28/16 Prednisone 10 mg PO BIDWM #14 tablet 11/28/16 Hydrochlorothiazide 25 mg PO DAILY #50 11/30/16 Ondansetron HCl [Zofran] 4 mg PO BID #6 tablet 12/02/16 Dicyclomine HCl [Bentyl] 10 mg PO TID PRN #15 capsule 02/05/17 Meclizine HCl 12.5 mg PO TID PRN #14 tablet 02/05/17 Ondansetron HCl [Zofran Tab] 8 mg PO Q8H PRN #15 tablet 02/05/17 Disposition Discussed With: Patient
[2017-02-05 21:50] LABS: ALBUMIN 3.9 g/dL (3.4-5.0); ALBUMIN/GLOBULIN RATIO 1.18; ANION GAP 16.3; BILIRUBIN,TOTAL 0.28 mg/dL (0.00-1.20); BUN/CREATININE RATIO 9.89; CALCIUM 9.3 mg/dL (8.2-10.2); CREATININE 0.91 mg/dL (0.60-1.30); POTASSIUM 3.3 mmol/L (3.5-5.10); TOTAL PROTEIN 7.2 g/dL (6.4-8.2)
--- NOTE | 2017-02-05 22:04 | CT ---
EXAM: CT of the head without contrast. HISTORY: Dizziness. COMPARISON: None. TECHNIQUE: Contiguous axial images at 5 mm intervals were obtained from the base of the skull to th e vertex of the calvarium. No contrast was given. FINDINGS: The CSF containing spaces are normal in size and position. There are no extraaxial fluid collections. There is no evidence of an acute intracranial hemorrhage. There are no masses or mas s effect. No areas of abnormal density are identified. Sharma-white differentiation is normal. Th e osseous and extracranial soft tissues are normal. IMPRESSION: No acute intracranial abnormality.
[2017-02-05] MEDS ORDERED: TORADOL IVP STA (22:09)
[2017-02-05] MEDS ORDERED: BENTYL IM STA (22:10)
--- NOTE | 2017-02-05 22:20 | CT ---
Exam: CT of the abdomen and pelvis without contrast History: Abdominal pain Technique: [address] of the abdomen and pelvis without intravascular contrast FINDINGS: The lung bases are clear. Sub centimeter liver cysts. The liver is unremarkable otherwis e. The adrenals, pancreas and spleen are unremarkable. There is a small hiatus hernia. The gallbla dder appears normal. Nonobstructing calcifications of the right kidney with maximum diameter of 3-4 mm. The left kidney and collecting system unremarkable. The right ureter is clear. The appendix is normal. Bowel loops demonstrate normal caliber. No inflamatory change seen in the mesentery or re troperitoneum. Atherosclerotic calcification of the aorta without aneurysm. Pelvic genitourinary structures appear normal. Pelvic bowel loops are unremarkable. No inflammatory change in the pelvic fat. No acute abnormality of the abdominal or pelvic skeleton. Impression: 1. No inflammatory process, bowel or urinary obstruction is seen. 2. Nonobstructing nephrolithiasis in the right kidney
[2017-02-05] MEDS ORDERED: PHENERGAN 25 MG/ML VIAL 25 MG in SODIUM CHLORIDE 50 ML IV STA (22:37)
[2017-02-05] MEDS ORDERED: SODIUM CHLORIDE 1,000 ML IV STA (22:37)
[2017-02-05] MEDS ORDERED: MORPHINE 4 MG/ML SYRINGE IVP STA (22:37)
[2017-02-05] MEDS ORDERED: PROTONIX IV IVP STA (22:38)
[2017-02-05] MEDS ORDERED: PHENERGAN 25 MG/ML VIAL ONE (22:41)
[2017-02-05 23:10] LABS: BILIRUBIN,URINE Negative (NEGATIVE); KETONES,URINE Negative (NEGATIVE); LEUKOCYTE ESTERASE ,URINE Negative (NEGATIVE); NITRITE,URINE Negative (NEGATIVE); PH,URINE 7.5 (5-9); PROTEIN,URINE Negative (NEGATIVE); URINE, BLOOD Negative (NEGATIVE)
[2017-02-05 23:11] LABS: ADD URINE MICROSCOPIC NO
--- NOTE | 2017-02-06 03:33 | DI ---
EXAM: Chest, single view 02/05/2017 HISTORY: Fever COMPARISON: 09/12/2016 FINDINGS / IMPRESSION: Cardiomediastinal countours appear stable. There is no focal pulmonary cons olidation. No pleural effusion or pneumothorax. No acute cardiopulmonary process.
== END 2017-02-06 00:40 | disposition home or self-care (01) ==
LOC: ED 21:01
DX: R10.84 Generalized abdominal pain (principal); R42 Dizziness and giddiness; R11.2 Nausea with vomiting, unspecified
CPT/HCPCS: 36415; 80053; 81001; 83605; 84145; 84484; 85025; 87040; 93005; 93010; 96361; 96365; 96372; 96375; 99282; 99283

== ENCOUNTER → 2017-05-10 | Outpatient (POV) | LOC: OUTPT 00:01 | PROVIDERS: ATTEND Otolaryngology | DX: R42 Dizziness and giddiness (principal); H91.90 Unspecified hearing loss, unspecified ear ==

== ENCOUNTER 2017-11-20 22:09 | Emergency (ER) ==
[2017-11-20] MEDS ORDERED: ZOFRAN 4 MG/2 ML IM STA (22:12)
[2017-11-20] MEDS ORDERED: MORPHINE 4 MG/ML SYRINGE IM STA (22:12)
--- NOTE | 2017-11-20 22:15 | ED.PDOC ---
General ED Provider: Dr. ANKIT GRIFFIN-ER Chief Complaint: Toe Pain/Injury Stated Complaint: i accidentally kicked a cardboard box full of books Time Seen by Physician: 22:13 Mode of Arrival: Walk-In Information Source: Patient Exam Limitations: No limitations Primary Care Provider: FAROOQ CRUZ Nursing and Triage Documentation Reviewed and Agree: Yes Reviewed sepsis parameters & appropriate labs ordered?: Yes System Inflammatory Response Syndrome: Not Applicable Sepsis Protocol: For patient's 13 years and over: Temp is 96.8 and below OR 101 and greater Pulse >90 BPM Resp >20/minute Acutely Altered Mental Status Are patient's symptoms suggestive of a new infection, such as: -Pneumonia -Skin, Soft Tissue -Endocarditis -UTI -Bone, Joint Infection -Implantable Device -Acute Abdominal Infection -Wound Infection -Meningitis -Blood Stream Catheter Infection -Unknown Musculoskeletal Complaint Exam - Ankle/Foot Complaint/Exam Location of Injury: Reports: Right, Toe #4 Mechanism of Injury: Reports: Trauma Onset/Duration: 45 min Symptoms Are: Reports: Still present Onset of Pain: Reports: Immediate Initial Severity: Mild Current Severity: Moderate Location: Reports: Discrete Character: Reports: Dull, Aching Aggravating: Reports: Movement, Weight bearing Able to Bear Weight: No Associated Signs and Symptoms: Reports: Swelling Lower Extremity Findings: Present: Swelling, Tenderness, Limited range of motion Achilles Tendon Abnormality: No Tenderness: Present: Digits Differential Diagnosis: Dislocation, Closed Fracture Review of Systems - Review Of Systems Constitutional: Reports: No symptoms Eyes: Reports: No symptoms Ears, Nose, Mouth, Throat: Reports: No symptoms Respiratory: Reports: No symptoms Cardiac: Reports: No symptoms GI: Reports: No symptoms : Reports: No symptoms Musculoskeletal: Reports: Joint pain, Muscle pain Skin: Reports: No symptoms Neurological: Reports: No symptoms Endocrine: Reports: No symptoms Hematologic/Lymphatic: Reports: No symptoms All Other Systems: Reviewed and Negative Past Medical History - Past Medical History Previously Healthy: Yes Endocrine: Reports: None Cardiovascular: Reports: None, Other Respiratory: Reports: None Hematological: Reports: None Gastrointestinal: Reports: GERD Genitourinary: Reports: UTI Neuro/Psych: Reports: None, Other (vertigo) Musculoskeletal: Reports: None, Back Pain ( muscle relaxer) Cancer: Reports: None Other Pertinent Past Medical History: Fx coccyx; vertigo, Meniere's - Surgical History General Surgical History: Reports: CABG, Other, Unknown - Family History Family History: Reports: Unknown - Social History Smoking Status: Never smoker Hx Substance Use: No Alcohol Screening: Occasionally Physical Exam - Physical Exam Appearance: Well-appearing, No pain distress, Well-nourished Pain Distress: Moderate Eyes: LUISITO, EOMI, Conjunctiva clear ENT: Ears normal, Nose normal, Oropharynx normal Neck: Supple Respiratory: Airway patent, Breath sounds clear, Breath sounds equal, Respirations nonlabored Cardiovascular: RRR, Pulses normal, No rub, No murmur GI/: Soft, Nontender, No masses, Bowel sounds normal, No Organomegaly Musculoskeletal: Normal strength, Limited ROM Skin: Warm, Dry, Normal color Neurological: Sensation intact, Motor intact, Reflexes intact, Cranial nerves intact, Alert, Oriented Psychiatric: Affect appropriate, Mood appropriate Interpretation - Radiology Interpretation Radiology Interpretation By: ED Physician Radiology Results: Positive Procedures - Splinting Location: right 4th toe Splint: Gutter splint Pre-Proc Neuro Vasc Exam: Normal Post-Proc Neuro Vasc Exam: Normal Critical Care Note - Critical Care Note Total Time (mins): 0 Course - Course Orders, Labs, Meds: Orders Category Date Time Status Cast shoe [ED SPLINT APPLICATION] .ONCE EMERGENCY 11/20/17 22:27 Active Splint [ED SPLINT APPLICATION] .ONCE EMERGENCY 11/20/17 22:27 Active Morphine Sulfate [Morphine 4 mg/ml Syringe] MEDS 11/20/17 22:12 Discontinued 4 mg IM ONCE STA Ondansetron HCl/Pf [Zofran 4 mg/2 ml] MEDS 11/20/17 22:12 Discontinued 4 mg IM ONCE STA TOE(S), RIGHT MIN 2V Stat RADS 11/20/17 22:12 Ordered Medications Discontinued Medications Generic Name Dose Route Start Last Admin Trade Name Freq PRN Reason Stop Dose Admin Morphine Sulfate 4 mg 11/20/17 22:12 Morphine 4 Mg/Ml Syringe IM 11/20/17 22:13 ONCE STA Ondansetron HCl 4 mg 11/20/17 22:12 Zofran 4 Mg/2 Ml IM 11/20/17 22:13 ONCE STA Vital Signs: Temp Pulse Resp BP Pulse Ox 11/20/17 22:10 98.6 F 80 24 94/67 98 Departure - Departure Time of Disposition: 22:28 Disposition: HOME SELF-CARE Discharge Problem: Toe fracture, right Qualifiers: Encounter type: initial encounter Toe: lesser toe Fracture type: closed Phalanx : middle Fracture alignment: displaced Qualified Code(s): S92.521A - Displaced fracture of middle phalanx of right lesser toe(s), initial encounter for closed fracture Instructions: Toe Fracture (ED) Condition: Good Pt referred to PMD for follow-up: Yes IPMP verified?: No Additional Instructions: norco 7.5mg q 4hrs prm pain #10---f/u with ortho clinic tomorrow with copy of xray Allergies/Adverse Reactions: Allergies No Known Allergies Allergy (Verified 11/20/17 22:15) Home Medications: Ambulatory Orders Dicyclomine HCl [Bentyl] 10 mg PO TID PRN #15 capsule 02/05/17 Cyclobenzaprine HCl [Flexeril] 10 mg PO BEDTIME 11/20/17 Diazepam [Valium] 2 mg PO Q8-12H PRN 11/20/17 Esomeprazole Magnesium [Nexium] 40 mg PO BID 11/20/17 Disposition Discussed With: Patient
[2017-11-20 22:19] VITALS: BP 94/67; TEMP 98.6; BMI 23.6
--- NOTE | 2017-11-21 07:59 | DI ---
EXAM: Right foot three views HISTORY: Toe injury COMPARISON: None. FINDINGS: There is no acute fracture, dislocation or bony erosion. IMPRESSION: No acute findings
== END 2017-11-20 22:59 | disposition home or self-care (01) ==
LOC: ED 22:09
DX: S92.521A Displaced fracture of middle phalanx of right lesser toe(s), initial encounter for closed fracture (principal); W22.8XXA Striking against or struck by other objects, initial encounter
CPT/HCPCS: 96372; 99283

== ENCOUNTER 2017-11-22 08:43 | Outpatient (POV) | END 2017-11-22 17:00 | LOC: OUTPT 08:43 | PROVIDERS: ATTEND Otolaryngology | DX: H91.92 Unspecified hearing loss, left ear (principal) ==

== ENCOUNTER 2018-03-06 08:56 | Outpatient (CLI) | END 2018-03-06 08:57 | disposition home or self-care (01) | LOC: CAR 08:56 | PROVIDERS: ATTEND Nurse Practitioner Family | DX: R07.9 Chest pain, unspecified (principal); I49.9 Cardiac arrhythmia, unspecified; R53.83 Other fatigue; Z98.890 Other specified postprocedural states | CPT/HCPCS: 36415; 80053; 80061; 84443; 85025; 93005; 93010 ==

== ENCOUNTER 2018-03-08 09:01 | Outpatient (CLI) ==
--- NOTE | 2018-03-10 10:03 | MAMMO ---
EXAM: Bilateral digital screening mammogram (2-D and 3-D) History: Screening Comparison: Bilateral mammogram 07/27/2016 Findings: MLO and CC views of bilateral breasts demonstrate scattered fibroglandular breast parenchy ma. CAD was reviewed by the radiologist. Tomosynthesis was performed. There are no dominant masses , no suspicious microcalcifications and no architectural distortions Impression: Stable negative mammogram. Recommend followup routine screening mammography in 1 year. BIRADS 1
== END 2018-03-08 09:02 | disposition home or self-care (01) ==
LOC: RAD 09:01
PROVIDERS: ATTEND Nurse Practitioner Family
DX: Z12.31 Encounter for screening mammogram for malignant neoplasm of breast (principal)
CPT/HCPCS: 77067

== ENCOUNTER 2018-04-07 07:53 | Emergency (ER) ==
[2018-04-07 07:59] VITALS: BP 109/72; TEMP 98.2; BMI 23.3
--- NOTE | 2018-04-07 08:32 | DI ---
EXAM: RIGHT HAND, 3 VIEWS HISTORY: Pain. FINDINGS: There is an acute fracture of the fifth metacarpal bone, distal third aspect with moderate posterior angulation and mild comminution. No intra-articular extension. No other fractures are se en. Joints are intact. IMPRESSION: Fifth metacarpal fracture.
--- NOTE | 2018-04-07 08:33 | DI ---
EXAM: RIGHT WRIST THREE VIEWS HISTORY: Pain after injury FINDINGS / IMPRESSION: The bones of the wrist are intact. No joint dislocation. No significant art hropathy. Redemonstration of fifth metacarpal fracture.
[2018-04-07] MEDS ORDERED: LIDOCAINE HCL 1% SDV SUBCUT STA (08:52)
[2018-04-07] MEDS ORDERED: MORPHINE 2 MG/ML SYRINGE IM STA (09:01)
[2018-04-07] MEDS ORDERED: ZOFRAN 4 MG/2 ML IM STA (09:01)
--- NOTE | 2018-04-07 09:15 | ED.PDOC ---
General ED Provider: Dr. PRESLEY SORENSEN Chief Complaint: Hand Pain/Injury Stated Complaint: hand/ wrist injury 1 day ago Time Seen by Physician: 08:00 (punched a wall) Mode of Arrival: Walk-In Information Source: Patient Exam Limitations: No limitations Primary Care Provider: AKILAH HWANG Nursing and Triage Documentation Reviewed and Agree: Yes Does patient meet sepsis criteria?: Yes If yes, has appropriate treatment been initiated?: No System Inflammatory Response Syndrome: Not Applicable Sepsis Protocol: For patient's 13 years and over: Temp is 96.8 and below OR 101 and greater Pulse >90 BPM Resp >20/minute Acutely Altered Mental Status Are patient's symptoms suggestive of a new infection, such as: -Pneumonia -Skin, Soft Tissue -Endocarditis -UTI -Bone, Joint Infection -Implantable Device -Acute Abdominal Infection -Wound Infection -Meningitis -Blood Stream Catheter Infection -Unknown Musculoskeletal Complaint Exam - Hand/Wrist Complaint/Exam Location of Pain: Reports: Right, Hand, Digit #5 Mechanism of Injury: Reports: Trauma (punched a wall) Onset/Duration: 1 day Symptoms Are: Still present Onset of Pain: Reports: Immediate Location: Reports: Discrete (5th mcp) Character: Reports: Aching, Spasmodic Alleviating: Reports: Rest Aggravating: Reports: Movement Associated Signs and Symptoms: Reports: Swelling, Bruising Dominant Hand: Right Related Surgical History: Reports: None Hand/Wrist Findings: Present: Swelling, Ecchymosis Compartment Syndrome Risk Factors: Present: Pain Differential Diagnoses: Closed Fracture Review of Systems - Review Of Systems Constitutional: Reports: No symptoms Eyes: Reports: No symptoms Ears, Nose, Mouth, Throat: Reports: No symptoms Respiratory: Reports: No symptoms Cardiac: Reports: No symptoms GI: Reports: No symptoms : Reports: No symptoms Musculoskeletal: Reports: Joint pain (pain 5th MCP) Skin: Reports: No symptoms Neurological: Reports: No symptoms Endocrine: Reports: No symptoms Hematologic/Lymphatic: Reports: No symptoms All Other Systems: Reviewed and Negative Past Medical History - Past Medical History Previously Healthy: Yes Endocrine: Reports: None Cardiovascular: Reports: None, Other Respiratory: Reports: None Hematological: Reports: None Gastrointestinal: Reports: GERD Genitourinary: Reports: UTI Neuro/Psych: Reports: None, Other (vertigo) Musculoskeletal: Reports: None, Back Pain ( muscle relaxer) Cancer: Reports: None Last Menstrual Period: n/a Other Pertinent Past Medical History: Fx coccyx; vertigo, Meniere's - Surgical History General Surgical History: Reports: CABG, Other, Unknown - Family History Family History: Reports: Unknown - Social History Smoking Status: Never smoker Hx Substance Use: No Alcohol Screening: Occasionally Physical Exam - Physical Exam Appearance: Well-appearing, No pain distress, Well-nourished Eyes: LUISITO, EOMI, Conjunctiva clear ENT: Ears normal, Nose normal, Oropharynx normal Respiratory: Airway patent, Breath sounds clear, Breath sounds equal, Respirations nonlabored Cardiovascular: RRR, Pulses normal, No rub, No murmur GI/: Soft, Nontender, No masses, Bowel sounds normal, No Organomegaly Musculoskeletal: Limited ROM (RIGHT HAND ) Skin: Warm, Dry, Normal color Neurological: Sensation intact, Motor intact, Reflexes intact, Cranial nerves intact, Alert, Oriented Psychiatric: Affect appropriate, Mood appropriate Interpretation - Radiology Interpretation Radiology Interpretation By: Radiologist Radiology Results: Positive (BOXERS FRACTURE MODERATELY ANGULATED , POST REDUCTION LESS ANGULATION NOTED) Procedures - Additional Procedures Additional Procedures: Digital Nerve Block (1ML 1% PLAIN LIDOCANE USED THE 5TH MCP HEAD PUSHED GENTLY TOWARD THE PALM POST REDUCTION FILM POSTIVE FOR BETTER POSITION) Critical Care Note - Critical Care Note Total Time (mins): 0 Course - Course Orders, Labs, Meds: Orders Category Date Time Status Lidocaine HCl/Pf [Lidocaine HCl 1% Sdv] MEDS 04/07/18 08:52 Discontinued 5 ml SUBCUT ONCE STA Morphine Sulfate [Morphine 2 mg/ml Syringe] MEDS 04/07/18 09:01 Discontinued 4 mg IM ONCE STA Ondansetron HCl/Pf [Zofran 4 mg/2 ml] MEDS 04/07/18 09:01 Discontinued 4 mg IM ONCE STA HAND, RIGHT 3 VIEWS Stat RADS 04/07/18 08:07 Completed HAND, RIGHT 3 VIEWS Stat RADS 04/07/18 08:59 Ordered WRIST, RIGHT 3 VIEWS Stat RADS 04/07/18 08:07 Completed Medications Discontinued Medications Generic Name Dose Route Start Last Admin Trade Name Freq PRN Reason Stop Dose Admin Lidocaine HCl 5 ml 04/07/18 08:52 Lidocaine Hcl 1% Sdv SUBCUT 04/07/18 08:53 ONCE STA Morphine Sulfate 4 mg 04/07/18 09:01 Morphine 2 Mg/Ml Syringe IM 04/07/18 09:02 ONCE STA Ondansetron HCl 4 mg 04/07/18 09:01 Zofran 4 Mg/2 Ml IM 04/07/18 09:02 ONCE STA Vital Signs: Temp Pulse Resp BP Pulse Ox 04/07/18 07:54 98.2 F 68 20 109/72 98 Departure - Departure Time of Disposition: 09:18 (CLOSED REDUCTION WAS ATTEMPTED UNDER FINISHING MACHINE TENDER ) Disposition: HOME SELF-CARE Discharge Problem: Boxers fracture Qualifiers: Encounter type: initial encounter Fracture type: closed Qualified Code(s): S62.339A - Displaced fracture of neck of unspecified metacarpal bone, initial encounter for closed fracture Instructions: Hand Fracture (ED), Closed Reduction (ED) Condition: Good Pt referred to PMD for follow-up: Yes IPMP verified?: No Additional Instructions: Please call your Family Physician as soon as possible to schedule a follow-up appointment.YOUR FINGER IS BROKEN I SHOWN YOU IN THE FILM PLEASE KEEP SPLINT ON AND SEE THE CLINIC Allergies/Adverse Reactions: Allergies No Known Allergies Allergy (Verified 04/07/18 07:59) Home Medications: Ambulatory Orders Hydrochlorothiazide 12.5 mg PO DAILY 11/29/17 Diazepam 2 mg PO Q8-12H #100 03/01/18 Esomeprazole Magnesium 40 mg PO DAILY #90 03/01/18
--- NOTE | 2018-04-07 09:31 | DI ---
EXAM: Radiographs, right and HISTORY: Status post reduction of the fifth metacarpal fracture. COMPARISON: Earlier the same day at 8:13 a.m.. TECHNIQUE: Three views. FINDINGS/IMPRESSION: There may be slightly decreased volar angulation of the fifth metacarpal major distal fracture fragme nt. Mild displacement is otherwise unchanged. No new fractures are seen.
== END 2018-04-07 09:30 | disposition home or self-care (01) ==
LOC: ED 07:53
DX: S62.306A Unspecified fracture of fifth metacarpal bone, right hand, initial encounter for closed fracture (principal); W22.8XXA Striking against or struck by other objects, initial encounter
CPT/HCPCS: 99283

== ENCOUNTER 2018-07-26 13:21 | Outpatient (POV) | END 2018-07-26 17:00 | LOC: OUTPT 13:21 | PROVIDERS: ATTEND Otolaryngology | DX: H91.90 Unspecified hearing loss, unspecified ear (principal) | CPT/HCPCS: 92557; 92567 ==

== ENCOUNTER 2018-10-10 09:23 | Outpatient (POV) | END 2018-10-10 17:00 | LOC: OUTPT 09:23 | PROVIDERS: ATTEND Otolaryngology | DX: H91.90 Unspecified hearing loss, unspecified ear (principal) | CPT/HCPCS: 92557; 92567 ==

== ENCOUNTER 2018-10-16 10:22 | Outpatient (CLI) ==
--- NOTE | 2018-10-16 11:14 | DI ---
Exam: Right hand three-view. HISTORY: Unspecified fracture of fifth metacarpal bone, right hand, sequela. Comparison: 04/07/2018. Findings: Three images of the right hand are submitted. The lateral view is limited by positioning. There has been interval healing of the previously noted fifth metacarpal fracture. No acute fractu re or dislocation is identified. There is no osseous erosion or radiodense foreign body. Mild degen erative findings are noted in the second and third distal interphalangeal joints. No focal soft tiss ue swelling is seen. Impressions: Interval osseous healing of the previously noted fifth metacarpal fracture. No acute fracture or dislocation.
== END 2018-10-16 10:23 | disposition home or self-care (01) ==
LOC: RAD 10:22
PROVIDERS: ATTEND Nurse Practitioner Family
DX: S62.306S Unspecified fracture of fifth metacarpal bone, right hand, sequela (principal); R07.9 Chest pain, unspecified; R06.02 Shortness of breath; Z98.890 Other specified postprocedural states
CPT/HCPCS: 36415; 80053; 80061; 84443; 85025; 93005; 93010

== ENCOUNTER 2018-10-16 10:29 | Outpatient (CLI) | END 2018-10-16 10:30 | disposition home or self-care (01) | LOC: RHC-LAB 10:29 | PROVIDERS: ATTEND Nurse Practitioner Family | DX: R06.02 Shortness of breath (principal); E78.5 Hyperlipidemia, unspecified; Z98.890 Other specified postprocedural states | CPT/HCPCS: 36415; 80053; 80061; 84443; 85025 ==

== ENCOUNTER 2018-10-30 06:25 | Outpatient (CLI) ==
--- NOTE | 2018-10-31 10:08 | ECHO2D ---
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 Atrium dimensions 1.9-3.8 3.9 Post. Wall thickness 0.8-1.1 1.0 IV septum (thickness) 0.7-1.2 1.1 Post. Wall excursion 0.72-1.3 NORMAL Septal motion -- Systolic motion R. Ventricular cavity 1.5-2.0 NORMAL LVEF 60% 40% Paradoxical septal wall motion MAYBE 2-D : 2-D M Mode Echocardiogram was performed using apical four chamber and left parasternal long and short axis views. Mitral, tricuspid and aortic valves appear to be normal. Contractility of the left ventricle seems to be normal, so is the cavity size. Left atrial cavity size and aortic root appear to be normal. There is no pericardial effusion. There is no thrombus noted in the left ventricular or left aortic cavity. No mitral valve prolapse noted. AKINETIC SEPTAL WALL M-MODE: MV: NORMAL AV: NORMAL TV: NORMAL PV: CHAMBER SIZE: NORMAL WALL MOTION: AKINETIC TO MILDLY PARADOXICAL SEPTAL WALL PERICARDIUM: NORMAL INTERPRETATION: 1. AKINETIC TO PARADOXICAL SEPTAL WALL (S/P CARDIAC SURGERY AT AGE 7) 2. NORMAL LEFT VENTRICLE SIZE AND NORMAL VALVES 3. LEFT VENTRICULAR EJECTION FRACTION 40% MTDD
== END 2018-10-30 06:26 | disposition home or self-care (01) ==
LOC: CAR 06:25
PROVIDERS: ATTEND Nurse Practitioner Family
DX: I49.9 Cardiac arrhythmia, unspecified (principal); I44.7 Left bundle-branch block, unspecified; Z98.890 Other specified postprocedural states

== ENCOUNTER 2018-11-10 12:56 | Emergency (ER) ==
[2018-11-10 13:04] VITALS: BP 95/57; TEMP 97.5; BMI 20.7
--- NOTE | 2018-11-10 13:40 | DI ---
EXAM: Four views of the left knee. History: Left knee trauma. Findings: No acute fracture or dislocation. No abnormal calcifications or radiopaque foreign bodies . Joint spaces are preserved. Chondrocalcinosis. Impression: 1. No acute osseous abnormality. 2. Chondrocalcinosis
[2018-11-10] MEDS ORDERED: TENIVAC IM ONE (13:53)
--- NOTE | 2018-11-10 14:03 | ED.PDOC ---
General ED Provider: Dr. PRESLEY SORENSEN Chief Complaint: Laceration Stated Complaint: laceration left knee with a flying debri while cutting grass today Time Seen by Physician: 13:00 () Mode of Arrival: Wheelchair Information Source: Patient Exam Limitations: No limitations Primary Care Provider: AKILAH HWANG Nursing and Triage Documentation Reviewed and Agree: Yes Does patient meet sepsis criteria?: No System Inflammatory Response Syndrome: Not Applicable Sepsis Protocol: For patient's 13 years and over: Temp is 96.8 and below OR 101 and greater Pulse >90 BPM Resp >20/minute Acutely Altered Mental Status Are patient's symptoms suggestive of a new infection, such as: -Pneumonia -Skin, Soft Tissue -Endocarditis -UTI -Bone, Joint Infection -Implantable Device -Acute Abdominal Infection -Wound Infection -Meningitis -Blood Stream Catheter Infection -Unknown Trauma/Injury Complaint Exam - Trauma Complaint/Exam Location of Pain or Injury: Reports: Other (left knee ) Onset/Duration: today Symptoms Are: Still present Timing of Treatment: Immediate Initial Severity: Mild Current Severity: Mild Character: Reports: Aching Aggravating: Reports: None Alleviating: Reports: None Associated Signs and Symptoms: Denies: LOC, Confusion, Memory loss, Lethargy, Vomiting, Bleeding, Bruising, Swelling, Extremity disuse, Painful respiration, Hoarseness, Dysphagia, Hemoptysis, Significant blood loss Related Surgical History: Reports: None Nexus Low Risk Criteria: No post-midline CS tender, No evidence of intoxicat., No Altered LOC, No focal neuro deficit, No distracting injuries Glascow Coma Scale (see protocol): 15 Review of Systems - Review Of Systems Constitutional: Reports: No symptoms Eyes: Reports: No symptoms Ears, Nose, Mouth, Throat: Reports: No symptoms Respiratory: Reports: No symptoms Cardiac: Reports: No symptoms GI: Reports: No symptoms : Reports: No symptoms Musculoskeletal: Reports: No symptoms Skin: Reports: No symptoms Neurological: Reports: No symptoms Endocrine: Reports: No symptoms Hematologic/Lymphatic: Reports: No symptoms All Other Systems: Reviewed and Negative Past Medical History - Past Medical History Previously Healthy: Yes Endocrine: Reports: None Cardiovascular: Reports: None, Other Respiratory: Reports: None Hematological: Reports: None Gastrointestinal: Reports: GERD Genitourinary: Reports: UTI Neuro/Psych: Reports: None, Other (vertigo) Musculoskeletal: Reports: None, Back Pain ( muscle relaxer) Cancer: Reports: None Last Menstrual Period: age 38 Other Pertinent Past Medical History: Fx coccyx; vertigo, Meniere's - Surgical History General Surgical History: Reports: CABG, Other, Unknown - Family History Family History: Reports: Unknown - Social History Smoking Status: Never smoker Hx Substance Use: No Alcohol Screening: Occasionally - Immunizations Tetanus Shot up to Date: No (unsure) Physical Exam - Physical Exam Appearance: Well-appearing, No pain distress, Well-nourished Eyes: LUISITO, EOMI, Conjunctiva clear ENT: Ears normal, Nose normal, Oropharynx normal Respiratory: Airway patent, Breath sounds clear, Breath sounds equal, Respirations nonlabored Cardiovascular: RRR, Pulses normal, No rub, No murmur GI/: Soft, Nontender, No masses, Bowel sounds normal, No Organomegaly Musculoskeletal: Normal strength, ROM intact, No edema, No calf tenderness Skin: Warm, Dry (2mm puncture wound left knee ) Neurological: Sensation intact, Motor intact, Reflexes intact, Cranial nerves intact, Alert, Oriented Psychiatric: Affect appropriate, Mood appropriate Critical Care Note - Critical Care Note Total Time (mins): 0 Course - Course Orders, Labs, Meds: Orders Category Date Time Status Tetanus and Diphtheria Tox/Pf [Tenivac] MEDS 11/10/18 13:53 Once 0.5 ml IM .ONCE ONE KNEE, LEFT 4 VIEWS Stat RADS 11/10/18 13:14 Ordered Medications Discontinued Medications Generic Name Dose Route Start Last Admin Trade Name Freq PRN Reason Stop Dose Admin Tetanus/Diphtheria Toxoids Adsorbed 0.5 ml 11/10/18 13:53 Tenivac IM 11/10/18 13:54 .ONCE ONE Vital Signs: Temp Pulse Resp BP Pulse Ox 11/10/18 12:58 97.5 F L 69 22 95/57 L 98 Departure - Departure Time of Disposition: 14:15 Disposition: HOME SELF-CARE Discharge Problem: Laceration - injury, Puncture wound Instructions: Puncture Wound (ED) Condition: Good Pt referred to PMD for follow-up: Yes IPMP verified?: No Additional Instructions: Please call your Family Physician as soon as possible to schedule a follow-up appointment. Allergies/Adverse Reactions: Allergies No Known Allergies Allergy (Verified 11/10/18 12:57) Home Medications: Ambulatory Orders Esomeprazole Magnesium 40 mg PO DAILY #90 03/01/18 Hydrochlorothiazide 25 mg PO DAILY 07/26/18 Cyclobenzaprine HCl 5 mg PO DAILY #90 10/10/18 Diazepam 5 mg PO DIRECTED #100 10/10/18 Acetaminophen [Tylenol] 325 mg PO PRN 10/16/18 Amoxicillin 500 mg PO Q8HR #21 tablet 11/10/18 Disposition Discussed With: Patient
== END 2018-11-10 14:28 | disposition home or self-care (01) ==
LOC: ED 12:56
DX: S81.012A Laceration without foreign body, left knee, initial encounter (principal); W45.8XXA Other foreign body or object entering through skin, initial encounter
CPT/HCPCS: 90471; 90714; 99283

== ENCOUNTER 2019-02-02 13:54 | Outpatient (CLI) | END 2019-02-02 13:55 | disposition home or self-care (01) | LOC: RHC-LAB 13:54 | PROVIDERS: ATTEND Nurse Practitioner Family | DX: D64.9 Anemia, unspecified (principal); I49.9 Cardiac arrhythmia, unspecified; E78.1 Pure hyperglyceridemia; E78.5 Hyperlipidemia, unspecified | CPT/HCPCS: 36415; 80053; 80061; 82607; 82728; 82746; 83540; 83550; 84466; 85007; 85025; 85045 ==

== ENCOUNTER 2019-02-09 14:57 | Outpatient (CLI) | END 2019-02-09 14:58 | disposition home or self-care (01) | LOC: RHC-LAB 14:57 | PROVIDERS: ATTEND Nurse Practitioner Family | DX: D72.819 Decreased white blood cell count, unspecified (principal) | CPT/HCPCS: 36415; 85007; 85025 ==

== ENCOUNTER 2021-02-23 05:51 | Inpatient (IN) ==
--- NOTE | 2021-02-23 06:28 | ED.PDOC ---
General <ANKIT SILVER MD - Last Filed: 02/23/21 06:28> ED Provider: Dr. ANKIT GRIFFIN Chief Complaint: Cough Stated Complaint: i was tested pos for covid on feb 18--im [id number] trouble breathing Time Seen by Provider: 02/23/21 06:24 Information Source: Patient Exam Limitations: No limitations Primary Care Provider: GARRET REARDON APRN Nursing and Triage Documentation Reviewed and Agree: Yes System Inflammatory Response Syndrome: Not Applicable Sepsis Protocol: For patient's 13 years and over: Temp is 96.8 and below OR 101 and greater Pulse >90 BPM Resp >20/minute Acutely Altered Mental Status Are patient's symptoms suggestive of a new infection, such as: -Pneumonia -Skin, Soft Tissue -Endocarditis -UTI -Bone, Joint Infection -Implantable Device -Acute Abdominal Infection -Wound Infection -Meningitis -Blood Stream Catheter Infection -Unknown <RANJITH CEDILLO MD - Last Filed: 02/23/21 13:24> Stated Complaint: I was tested pos for covid on feb 18--I am having trouble breathing Does patient meet sepsis criteria?: No Respiratory Complaint Exam <ANKIT SILVER MD - Last Filed: 02/23/21 06:28> Respiratory Complaint/Exam Onset/Duration: a few days Symptoms Are: Still present Timing: Intermittent Initial Severity: Mild Current Severity: Moderate Location: Chest Character: Reports Productive cough Aggravating: Reports URI Alleviating: Reports None Associated Signs and Symptoms: Reports Dyspnea and Fever Related History: Reports Similar episode History of Healthcare-Acquired Pneumonia: No Home Oxygen Use: No Recent Stress Test: No Recent Echo/LV Function: No Current Antibiotic Use: No Current Asthma Medication Use: No Inadequate Respiratory Effort: Yes Dysphagia Present: No Stridor Present: No Accessory Muscle Use: No Retractions: Not Present Diminished Breath Sounds: Yes Sinus Tenderness: None Grunting Respirations: No Kussmaul Respirations: No Differential Diagnoses: Pneumonia, Pulmonary Embolism and Bronchitis Non-Traumatic Chest Pain Syncope: EKG Performed Review of Systems <ANKIT SILVER MD - Last Filed: 02/23/21 06:28> Review Of Systems Constitutional: Reports No symptoms Eyes: Reports No symptoms Ears, Nose, Mouth, Throat: Reports No symptoms Respiratory: Reports Cough and Short of air Cardiac: Reports No symptoms GI: Reports No symptoms : Reports No symptoms Musculoskeletal: Reports No symptoms Skin: Reports No symptoms Neurological: Reports No symptoms Endocrine: Reports No symptoms Hematologic/Lymphatic: Reports No symptoms All Other Systems: Reviewed and Negative PFSH <ANKIT SILVER MD - Last Filed: 02/23/21 06:28> Medical History Active cochleovestibular Meniere's disease Active cochleovestibular Meniere's disease Bradycardia Cataract Cough GERD (gastroesophageal reflux disease) Headache Heart murmur Hospital discharge follow-up Hyperlipidemia Hypertriglyceridemia (03/06/18) Hypertriglyceridemia Injury of right toe Left knee injury Muscle spasm (03/06/18) Ringworm of body Sensorineural hearing loss (SNHL) of both ears Sinusitis SOB (shortness of breath) on exertion Vertigo Family History Mother Cardiac disease SISTER Breast cancer, left Grandfather/Grandmother No problems noted. BROTHER No problems noted. Other Melanoma Pancreas cancer Social History Smoking and tobacco status: Never smoker Second hand smoke exposure: Yes Alcohol intake: current Alcohol intake frequency: holidays/special occasions only Substance use type: does not use Zhanna/yarsani: None Special zhanna needs: No Agree to transfusion: Yes Adopted: No Caregiver/support person: No Household members: none Housing: house Lives independently: Yes Highest education level completed: high school graduate Financial difficulty paying for basics: not applicable service: No Current occupational status: employed Current occupation: information services assistant Current occupational exposures/hazards: Yes Pets and animals: Yes Leisure activites: exercise History of recent travel: No Sexually active: Yes Do you think of yourself as: straight/heterosexual Current gender identity: female Seatbelt use: always Helmet use: No Drives intoxicated or rides with intoxicated solid waste truck driver: No Water heater temperature set < 120 degrees: Yes Working smoke detector in home: Yes Fire extinguisher in home: No Carbon monoxide detector in home: No Firearms in home: No Surgical History History of cataract surgery History of heart surgery History of heart surgery Female Reproductive History Menstrual Hx Hysterectomy: No Hx Tubal Ligation: No Physical Exam <ANKIT SILVER MD - Last Filed: 02/23/21 06:28> Physical Exam Appearance: Reports Well-appearing Ill-appearing: Mild Pain Distress: Not Applicable Eyes: Reports LUISITO, EOMI and Conjunctiva clear ENT: Reports Ears normal, Nose normal and Oropharynx normal Neck: Supple Respiratory: Reports Airway patent, Breath sounds clear and Breath sounds equal Cardiovascular: Reports RRR, Pulses normal and No rub GI/: Reports Soft, Nontender and No masses Musculoskeletal: Reports Normal strength, ROM intact, No edema and No calf tenderness Skin: Reports Warm, Dry and Normal color Neurological: Reports Sensation intact, Motor intact, Reflexes intact, Cranial nerves intact, Alert and Oriented Psychiatric: Reports Affect appropriate and Mood appropriate <RANJITH CEDILLO MD - Last Filed: 02/23/21 13:24> Radiology Interpretation Radiology Interpretation By: Radiologist Radiology Results: Positive Exam Interpreted: Portable CXR ( Increasing patchy airspace opacities throughout the mid to lower right lung and left lung base concerning for pneumonia as described. Follow-up imaging recommended.) <RANJITH CEDILLO MD - Last Filed: 02/23/21 13:24> Critical Care Note Total Critical Care Time (mins): 30 Course <ANKIT SILVER MD - Last Filed: 02/23/21 06:28> Course Hematology/Chemistry: 02/23/21 06:40 02/23/21 06:40 Orders, Labs, Meds: Lab Review 02/23/21 02/23/21 02/23/21 06:23 06:40 06:40 WBC 7.58 RBC 4.05 L Hgb 12.1 Hct 36.8 L MCV 90.9 MCH 29.9 MCHC 32.9 RDW Coeff of Eulalia 13.6 Plt Count 162 Immature Gran % (Auto) 0.1 Neut % (Auto) 80.7 H Lymph % (Auto) 12.1 [place] % (Auto) 7.0 Eos % (Auto) 0.0 Baso % (Auto) 0.1 Neut # (Auto) 6.1 Lymph # (Auto) 0.9 [place] # (Auto) 0.5 Eos # (Auto) 0.0 Baso # (Auto) 0.0 Immature Gran # (Auto) 0.0 ESR 46 H Puncture Site R brach Base Excess 4.0 H O2 Saturation 91.1 L ABG pH 7.47 H ABG pCO2 38.0 ABG pO2 57.0 L* ABG HCO3 27.7 ABG Total CO2 28.9 H Jesus Test Yes Hemoglobin 1.0 Oxyhemoglobin 89.5 L Carboxyhemoglobin 1.9 H Total Hemoglobin 11.4 L FiO2 % 21.0 Sodium 137.4 Potassium 3.62 Chloride 99.8 Carbon Dioxide 27.6 Anion Gap 13.62 BUN 15.5 Creatinine 0.90 Estimated GFR (MDRD) 64.00 BUN/Creatinine Ratio 17.22 Glucose 115.2 H Lactic Acid Calcium 8.48 Ferritin 266.00 H Total Bilirubin 0.37 AST 43.9 H ALT 8.0 Alkaline Phosphatase 83.2 Total Creatine Kinase 86.0 Troponin I < 0.012 NT-Pro-B Natriuret Pep 676.000 H Total Protein 7.13 Albumin 4.06 Globulin 3.07 Albumin/Globulin Ratio 1.32 Procalcitonin D-Dimer 02/23/21 02/23/21 02/23/21 06:40 06:40 06:40 WBC RBC Hgb Hct MCV MCH MCHC RDW Coeff of Eulalia Plt Count Immature Gran % (Auto) Neut % (Auto) Lymph % (Auto) [place] % (Auto) Eos % (Auto) Baso % (Auto) Neut # (Auto) Lymph # (Auto) [place] # (Auto) Eos # (Auto) Baso # (Auto) Immature Gran # (Auto) ESR Puncture Site Base Excess O2 Saturation ABG pH ABG pCO2 ABG pO2 ABG HCO3 ABG Total CO2 Jesus Test Hemoglobin Oxyhemoglobin Carboxyhemoglobin Total Hemoglobin FiO2 % Sodium Potassium Chloride Carbon Dioxide Anion Gap BUN Creatinine Estimated GFR (MDRD) BUN/Creatinine Ratio Glucose Lactic Acid 0.81 Calcium Ferritin Total Bilirubin AST ALT Alkaline Phosphatase Total Creatine Kinase Troponin I NT-Pro-B Natriuret Pep Total Protein Albumin Globulin Albumin/Globulin Ratio Procalcitonin < 0.05 D-Dimer 818.25 H Orders Category Date Time Status ABG DRAW REQUEST Stat CARDIO 02/23/21 06:19 Completed EKG-(ED ONLY) Stat CARDIO 02/23/21 06:19 Completed OXYGEN Routine CARDIO 02/23/21 09:35 Active ACTIVITY .Up ad Lisa CARE 02/23/21 09:34 Completed INCISION/WOUND CARE Q4HR CARE 02/23/21 09:34 Active INTAKE & OUTPUT Q8HR CARE 02/23/21 09:35 Active IP: INSERT SALINE LOCK ONCE CARE 02/23/21 09:35 Active NPO REMINDER: IMAGING ONCE CARE 02/23/21 08:21 Completed VITAL SIGNS Q8HR CARE 02/23/21 09:35 Completed REGULAR DIET DIETARY 02/23/21 Lunch Ordered ED IV/MEDIPORT/POWERPORT .ONCE EMERGENCY 02/23/21 06:22 Active ABG COOX Stat LAB 02/23/21 06:23 Completed BASIC METABOLIC PANEL DAILY@0600 LAB 02/24/21 06:00 Ordered BASIC METABOLIC PANEL DAILY@0600 LAB 02/25/21 06:00 Ordered BLOOD CULTURE (ED ONLY) Stat LAB 02/23/21 06:40 Received CBC W/ AUTO DIFF DAILY@0600 LAB 02/24/21 06:00 Ordered CBC W/ AUTO DIFF DAILY@0600 LAB 02/25/21 06:00 Ordered CBC W/ AUTO DIFF Stat LAB 02/23/21 06:40 Completed COMPREHENSIVE METABOLIC PANEL Stat LAB 02/23/21 06:40 Completed CREATINE KINASE Stat LAB 02/23/21 06:40 Completed D-DIMER Stat LAB 02/23/21 06:40 Completed ESR Stat LAB 02/23/21 06:40 Completed FERRITIN Stat LAB 02/23/21 06:40 Completed LACTIC ACID Stat LAB 02/23/21 06:40 Completed Lactic Acid Dehydrogenase Stat LAB 02/23/21 06:40 Received NT-PROBNP Stat LAB 02/23/21 06:40 Completed PROCALCITONIN Stat LAB 02/23/21 06:40 Completed PT WITH INR DAILY@0600 LAB 02/24/21 06:00 Ordered PT WITH INR DAILY@0600 LAB 02/25/21 06:00 Ordered PT WITH INR DAILY@0600 LAB 02/26/21 06:00 Ordered PT WITH INR DAILY@0600 LAB 02/27/21 06:00 Ordered PT WITH INR Stat LAB 02/23/21 11:27 Completed TROPONIN I Stat LAB 02/23/21 06:40 Completed 0.9 % Sodium Chloride [Saline Flush] MEDS 02/23/21 06:22 Active 1 syr IVF PRN PRN Acetaminophen [Tylenol] MEDS 02/23/21 09:34 Active 650 mg PO Q4H PRN Azithromycin [Zithromax] MEDS 02/24/21 09:00 Active 250 mg PO DAILY Azithromycin [Zithromax] MEDS 02/23/21 09:34 Discontinued 500 mg PO ONCE ONE Ceftriaxone/D5w 1 gm Premix [Rocephin 1 gm/50 ml D5w] MEDS 02/24/21 09:00 Active 1 gm in 50 ml IV DAILY Ceftriaxone/D5w 1 gm Premix [Rocephin 1 gm/50 ml D5w] MEDS 02/23/21 09:33 Discontinued 1 gm in 50 ml IV ONCE Enoxaparin Sodium [Lovenox] MEDS 02/23/21 12:00 Active 40 mg SUBCUT DAILY Remdesivir Solution [Veklury] 100 mg MEDS 02/24/21 12:00 Active 0.9 % Sodium Chloride [Sodium Chloride] 250 ml IV DAILY@1200 Remdesivir Solution [Veklury] 200 mg MEDS 02/23/21 11:00 Discontinued 0.9 % Sodium Chloride [Sodium Chloride] 250 ml IV ONCE RESUSCITATION STATUS Routine OTHERS 02/23/21 09:34 Ordered CHEST, 1V AP ONLY Stat RADS 02/23/21 06:[address] CHEST PE PROTOCOL Stat RADS 02/23/21 08:20 Completed Medications Generic Name Dose Route Start Last Admin Trade Name Freq PRN Reason Stop Dose Admin Acetaminophen 650 mg 02/23/21 09:34 02/23/21 12:36 Acetaminophen 325 Mg Tablet PO 650 mg Q4H PRN Administration Mild Pain Azithromycin 250 mg 02/24/21 09:00 Azithromycin 250 Mg Tablet PO 02/27/21 08:59 DAILY SALO Enoxaparin Sodium 40 mg 02/23/21 12:00 02/23/21 12:40 Enoxaparin Sodium 40 Mg/0.4 Ml Syr SUBCUT 40 mg DAILY SALO Administration REMDESIVIR SOLUTION 100 mg/ 270 mls @ 270 mls/hr 02/24/21 12:00 Sodium Chloride IV 02/27/21 14:00 DAILY@1200 SALO CEFTRIAXONE/D5W 1 GM PREMIX 1 gm in 50 mls @ 75 mls/hr 02/24/21 09:00 Rocephin 1 Gm/50 Ml D5w IV 02/27/21 08:59 DAILY SALO Sodium Chloride 1,000 mls @ 30 mls/hr 02/23/21 10:30 02/23/21 10:34 Sodium Chloride IV 02/24/21 19:49 30 mls/hr BOLUS STA Administration REMDESIVIR SOLUTION 200 mg/ 290 mls @ 145 mls/hr 02/23/21 12:00 02/23/21 12:39 Sodium Chloride IV 02/23/21 13:59 145 mls/hr ONCE ONE Administration Sodium Chloride 1 syr 02/23/21 06:22 02/23/21 10:34 0.9% Sodium Chloride 10 Ml Disp.Syrin IVF 1 syr PRN PRN Administration To flush IV Discontinued Medications Generic Name Dose Route Start Last Admin Trade Name Jimmie PRN Reason Stop Dose Admin Azithromycin 500 mg 02/23/21 09:34 02/23/21 10:34 Azithromycin 250 Mg Tablet PO 02/23/21 09:35 500 mg ONCE ONE Administration REMDESIVIR SOLUTION 200 mg/ 290 mls @ 145 mls/hr 02/23/21 11:00 02/23/21 12:47 Sodium Chloride IV 02/23/21 12:59 Not Given ONCE ONE CEFTRIAXONE/D5W 1 GM PREMIX 1 gm in 50 mls @ 75 mls/hr 02/23/21 09:33 02/23/21 10:34 Rocephin 1 Gm/50 Ml D5w IV 02/23/21 10:12 75 mls/hr ONCE STA Administration Vital Signs: Temp Pulse Resp BP Pulse Ox 02/23/21 06:01 98.8 F 84 14 105/65 96 <RANJITH CEDILLO MD - Last Filed: 02/23/21 13:24> Course Orders, Labs, Meds: Lab Review 02/23/21 02/23/21 02/23/21 06:23 06:40 06:40 WBC 7.58 RBC 4.05 L Hgb 12.1 Hct 36.8 L MCV 90.9 MCH 29.9 MCHC 32.9 RDW Coeff of Eulalia 13.6 Plt Count 162 Immature Gran % (Auto) 0.1 Neut % (Auto) 80.7 H Lymph % (Auto) 12.1 [place] % (Auto) 7.0 Eos % (Auto) 0.0 Baso % (Auto) 0.1 Neut # (Auto) 6.1 Lymph # (Auto) 0.9 [place] # (Auto) 0.5 Eos # (Auto) 0.0 Baso # (Auto) 0.0 Immature Gran # (Auto) 0.0 ESR 46 H Puncture Site R brach Base Excess 4.0 H O2 Saturation 91.1 L ABG pH 7.47 H ABG pCO2 38.0 ABG pO2 57.0 L* ABG HCO3 27.7 ABG Total CO2 28.9 H Jesus Test Yes Hemoglobin 1.0 Oxyhemoglobin 89.5 L Carboxyhemoglobin 1.9 H Total Hemoglobin 11.4 L FiO2 % 21.0 Sodium 137.4 Potassium 3.62 Chloride 99.8 Carbon Dioxide 27.6 Anion Gap 13.62 BUN 15.5 Creatinine 0.90 Estimated GFR (MDRD) 64.00 BUN/Creatinine Ratio 17.22 Glucose 115.2 H Lactic Acid Calcium 8.48 Ferritin 266.00 H Total Bilirubin 0.37 AST 43.9 H ALT 8.0 Alkaline Phosphatase 83.2 Total Creatine Kinase 86.0 Troponin I < 0.012 NT-Pro-B Natriuret Pep 676.000 H Total Protein 7.13 Albumin 4.06 Globulin 3.07 Albumin/Globulin Ratio 1.32 Procalcitonin D-Dimer 02/23/21 02/23/21 02/23/21 06:40 06:40 06:40 WBC RBC Hgb Hct MCV MCH MCHC RDW Coeff of [place]ul[place] Plt Count Immature Gran % (Auto) Neut % (Auto) Lymph % (Auto) [place] % (Auto) Eos % (Auto) Baso % (Auto) Neut # (Auto) Lymph # (Auto) [place] # (Auto) Eos # (Auto) Baso # (Auto) Immature Gran # (Auto) ESR Puncture Site Base Excess O2 Saturation ABG pH ABG pCO2 ABG pO2 ABG HCO3 ABG Total CO2 Jesus Test Hemoglobin Oxyhemoglobin Carboxyhemoglobin Total Hemoglobin FiO2 % Sodium Potassium Chloride Carbon Dioxide Anion Gap BUN Creatinine Estimated GFR (MDRD) BUN/Creatinine Ratio Glucose Lactic Acid 0.81 Calcium Ferritin Total Bilirubin AST ALT Alkaline Phosphatase Total Creatine Kinase Troponin I NT-Pro-B Natriuret Pep Total Protein Albumin Globulin Albumin/Globulin Ratio Procalcitonin < 0.05 D-Dimer 818.25 H Orders Category Date Time Status ABG DRAW REQUEST Stat CARDIO 02/23/21 06:19 Completed EKG-(ED ONLY) Stat CARDIO 02/23/21 06:19 Completed OXYGEN Routine CARDIO 02/23/21 09:35 Active ACTIVITY .Up ad Lisa CARE 02/23/21 09:34 Completed INCISION/WOUND CARE Q4HR CARE 02/23/21 09:34 Active INTAKE & OUTPUT Q8HR CARE 02/23/21 09:35 Active IP: INSERT SALINE LOCK ONCE CARE 02/23/21 09:35 Active NPO REMINDER: IMAGING ONCE CARE 02/23/21 08:21 Completed VITAL SIGNS Q8HR CARE 02/23/21 09:35 Completed REGULAR DIET DIETARY 02/23/21 Lunch Ordered ED IV/MEDIPORT/POWERPORT .ONCE EMERGENCY 02/23/21 06:22 Active ABG COOX Stat LAB 02/23/21 06:23 Completed BASIC METABOLIC PANEL DAILY@0600 LAB 02/24/21 06:00 Ordered BASIC METABOLIC PANEL DAILY@0600 LAB 02/25/21 06:00 Ordered BLOOD CULTURE (ED ONLY) Stat LAB 02/23/21 06:40 Received CBC W/ AUTO DIFF DAILY@0600 LAB 02/24/21 06:00 Ordered CBC W/ AUTO DIFF DAILY@0600 LAB 02/25/21 06:00 Ordered CBC W/ AUTO DIFF Stat LAB 02/23/21 06:40 Completed COMPREHENSIVE METABOLIC PANEL Stat LAB 02/23/21 06:40 Completed CREATINE KINASE Stat LAB 02/23/21 06:40 Completed D-DIMER Stat LAB 02/23/21 06:40 Completed ESR Stat LAB 02/23/21 06:40 Completed FERRITIN Stat LAB 02/23/21 06:40 Completed LACTIC ACID Stat LAB 02/23/21 06:40 Completed Lactic Acid Dehydrogenase Stat LAB 02/23/21 06:40 Received NT-PROBNP Stat LAB 02/23/21 06:40 Completed PROCALCITONIN Stat LAB 02/23/21 06:40 Completed PT WITH INR DAILY@0600 LAB 02/24/21 06:00 Ordered PT WITH INR DAILY@0600 LAB 02/25/21 06:00 Ordered PT WITH INR DAILY@0600 LAB 02/26/21 06:00 Ordered PT WITH INR DAILY@0600 LAB 02/27/21 06:00 Ordered PT WITH INR Stat LAB 02/23/21 11:27 Completed TROPONIN I Stat LAB 02/23/21 06:40 Completed 0.9 % Sodium Chloride [Saline Flush] MEDS 02/23/21 06:22 Active 1 syr IVF PRN PRN Acetaminophen [Tylenol] MEDS 02/23/21 09:34 Active 650 mg PO Q4H PRN Azithromycin [Zithromax] MEDS 02/24/21 09:00 Active 250 mg PO DAILY Azithromycin [Zithromax] MEDS 02/23/21 09:34 Discontinued 500 mg PO ONCE ONE Ceftriaxone/D5w 1 gm Premix [Rocephin 1 gm/50 ml D5w] MEDS 02/24/21 09:00 Active 1 gm in 50 ml IV DAILY Ceftriaxone/D5w 1 gm Premix [Rocephin 1 gm/50 ml D5w] MEDS 02/23/21 09:33 Discontinued 1 gm in 50 ml IV ONCE Enoxaparin Sodium [Lovenox] MEDS 02/23/21 12:00 Active 40 mg SUBCUT DAILY Remdesivir Solution [Veklury] 100 mg MEDS 02/24/21 12:00 Active 0.9 % Sodium Chloride [Sodium Chloride] 250 ml IV DAILY@1200 Remdesivir Solution [Veklury] 200 mg MEDS 02/23/21 11:00 Discontinued 0.9 % Sodium Chloride [Sodium Chloride] 250 ml IV ONCE RESUSCITATION STATUS Routine OTHERS 02/23/21 09:34 Ordered CHEST, 1V AP ONLY Stat RADS 02/23/21 06:[address] CHEST PE PROTOCOL Stat RADS 02/23/21 08:20 Completed Medications Generic Name Dose Route Start Last Admin Trade Name Freq PRN Reason Stop Dose Admin Acetaminophen 650 mg 02/23/21 09:34 02/23/21 12:36 Acetaminophen 325 Mg Tablet PO 650 mg Q4H PRN Administration Mild Pain Azithromycin 250 mg 02/24/21 09:00 Azithromycin 250 Mg Tablet PO 02/27/21 08:59 DAILY SALO Enoxaparin Sodium 40 mg 02/23/21 12:00 02/23/21 12:40 Enoxaparin Sodium 40 Mg/0.4 Ml Syr SUBCUT 40 mg DAILY SALO Administration REMDESIVIR SOLUTION 100 mg/ 270 mls @ 270 mls/hr 02/24/21 12:00 Sodium Chloride IV 02/27/21 14:00 DAILY@1200 SALO CEFTRIAXONE/D5W 1 GM PREMIX 1 gm in 50 mls @ 75 mls/hr 02/24/21 09:00 Rocephin 1 Gm/50 Ml D5w IV 02/27/21 08:59 DAILY SALO Sodium Chloride 1,000 mls @ 30 mls/hr 02/23/21 10:30 02/23/21 10:34 Sodium Chloride IV 02/24/21 19:49 30 mls/hr BOLUS STA Administration REMDESIVIR SOLUTION 200 mg/ 290 mls @ 145 mls/hr 02/23/21 12:00 02/23/21 12:39 Sodium Chloride IV 02/23/21 13:59 145 mls/hr ONCE ONE Administration Sodium Chloride 1 syr 02/23/21 06:22 02/23/21 10:34 0.9% Sodium Chloride 10 Ml Disp.Syrin IVF 1 syr PRN PRN Administration To flush IV Discontinued Medications Generic Name Dose Route Start Last Admin Trade Name Freq PRN Reason Stop Dose Admin Azithromycin 500 mg 02/23/21 09:34 02/23/21 10:34 Azithromycin 250 Mg Tablet PO 02/23/21 09:35 500 mg ONCE ONE Administration REMDESIVIR SOLUTION 200 mg/ 290 mls @ 145 mls/hr 02/23/21 11:00 02/23/21 12:47 Sodium Chloride IV 02/23/21 12:59 Not Given ONCE ONE CEFTRIAXONE/D5W 1 GM PREMIX 1 gm in 50 mls @ 75 mls/hr 02/23/21 09:33 02/23/21 10:34 Rocephin 1 Gm/50 Ml D5w IV 02/23/21 10:12 75 mls/hr ONCE STA Administration Vital Signs: Temp Pulse Resp BP Pulse Ox 02/23/21 06:01 98.8 F 84 14 105/65 96 Discharge Plan Discharge Patient Disposition: ADMITTED INPATIENT Discharge Problem: Pneumonia due to 2019 novel coronavirus Respiratory failure with hypoxia Qualifiers: Chronicity: acute Qualified Code(s): J96.01 - Acute respiratory failure with hypoxia ED Provider: ANKIT SILVER Condition: Stable <ANKIT SILVER MD - Last Filed: 02/23/21 06:28> Physician Progress Note: []
[2021-02-23 06:47] LABS: BASOPHILS % (AUTO) 0.1 % (0.0-3.0); HEMATOCRIT 36.8 % (37.0-47.0); HEMOGLOBIN 12.1 g/dl (12.0-16.0); IMMATURE GRANULOCYTE % (AUTO) 0.1 % (0.0-5.0); LYMPHOCYTES # (AUTO) 0.9 K/uL (0.60-3.4); LYMPHOCYTES % (AUTO) 12.1 (10.0-50.0); MEAN CORPUSCULAR HEMOGLOBIN 29.9 pg (27.0-31.0); MEAN CORPUSCULAR HGB CONC 32.9 (31.8-35.4); MEAN CORPUSCULAR VOLUME 90.9 fl (81.0-99.0); MONOCYTES # (AUTO) 0.5 K/uL (0.4-2.0); NEUTROPHILS # (AUTO) 6.1 K/ul (2.0-6.9); NEUTROPHILS % (AUTO) 80.7 % (42.2-75.2); PLATELET COUNT 162 10^3/uL (140-440); RDW COEFFICIENT OF VARIATION 13.6 % (11.6-14.8); RED BLOOD COUNT 4.05 10^6/ul (4.20-5.40); WHITE BLOOD COUNT 7.58 K/ul (4.6-10.2)
[2021-02-23 06:54] LABS: ABG O2 HGB 89.5 % (95-100); ABG PH 7.47 (7.35-7.45); COHb 1.9 (0.5-1.5); HCO3 27.7 (21-28); TCO2 28.9 (19-24); sO2 91.1 % (94-98); tHb 11.4 g/dl (11.7-17.4)
[2021-02-23 07:01] LABS: ALBUMIN 4.06 g/dL (3.5-5.0); ALKALINE PHOSPHATASE 83.2 U/L (38-126); ASPARTATE AMINO TRANSFERASE 43.9 U/L (14-36); BILIRUBIN,TOTAL 0.37 mg/dL (0.2-1.3); BLOOD UREA NITROGEN 15.5 mg/dL (7-17); CALCIUM 8.48 mg/dL (8.4-10.2); CARBON DIOXIDE 27.6 mmol/L (22-30.0); CHLORIDE 99.8 mmol/L (98-107); GLUCOSE 115.2 mg/dL (74-106); POTASSIUM 3.62 mmol/L (3.5-5.1); SODIUM 137.4 mmol/L (134.5-145); TOTAL PROTEIN 7.13 g/dL (6.3-8.2)
[2021-02-23 07:21] LABS: TROPONIN I < 0.012 ng/ml (0.0000-0.120)
[2021-02-23 07:30] LABS: ERYTHROCYTE SEDIMENTATION RATE 46 mm/hr (0-20)
--- NOTE | 2021-02-23 07:31 | DI ---
EXAM: Chest, single view COMPARISON: Chest radiograph 02/18/2021. CT chest 06/29/2019. HISTORY: Shortness breath. FINDINGS: Contour abnormality of the mediastinum along the pulmonary trunk corresponding to enlargem ent of the pulmonary artery on prior CT head with no significant change as compared to prior radiogra phs. Cardiac silhouette stable appearance. Increasing patchy airspace opacities throughout the mid to lower right lung and left lung base concerning for pneumonia. No pleural effusion or pneumothorax . IMPRESSION: Increasing patchy airspace opacities throughout the mid to lower right lung and left siva g base concerning for pneumonia as described. Follow-up imaging recommended. Stable mediastinal contour abnormality related to enlargement of the pulmonary artery seen on prior C T.
--- NOTE | 2021-02-23 09:27 | CT ---
EXAM: CT CHEST WITH INTRAVENOUS CONTRAST (CT ANGIOGRAPHY). HISTORY: Shortness of breath and COVID-19 positive. High D-dimer. COMPARISON: Chest radiograph 02/23/2021. CT chest 06/29/2009. TECHNIQUE: CT images of the chest were obtained following the intravenous administration of contrast per pulmonary embolism protocol. Axial reconstructions with sagittal/coronal maximum intensity proj ections as well as 3-D volume rendered images were provided per PE protocol. FINDINGS: There is enlargement of pulmonary artery measuring up to 3.9 cm in diameter as noted on previous imag ing studies, suggesting underlying pulmonary arterial hypertension. There are no discrete intralumin al filling defects within the main pulmonary artery or proximal portions of the right and left pulmon imtiaz arteries to suggest an acute pulmonary embolism. Assessment of the more peripheral (segmental/wright bsegmental) branches is overall limited due to patient respiratory motion artifact and timing of the contrast bolus. The thoracic aorta is normal in caliber without evidence of an aneurysm. Scattered coronary artery calcifications. There is cardiomegaly with prominent right heart enlargement likely related underlying pulmonary arterial hypertension. No significant pericardial effusion. There are sub-centimeter mediastinal lymph nodes. Prominent right hilar lymphoid tissue measuring up to 1.9 x 1.2 cm. Central airways are patent. There are patchy airspace opacities extending throughout the lungs bilaterally with more confluent re gions of consolidation in the lower lobes and middle lobe in keeping with pneumonia. Scattered calci fied granulomas. No pleural effusion or pneumothorax. There are several regions of low attenuation within the right and left lobes liver measuring up to 0. 8 cm in size which are too small to definitely characterize but not significantly changed in appearan ce as compared to CT of the abdomen pelvis 05/22/2019. There are degenerative changes of the spine. No acute osseous abnormality. The final report was faxed to the radiology department and emergency room at 9:18 a.m. on 02/23/2021. IMPRESSION: Enlargement of the pulmonary artery as described on previous imaging studies suggesting underlying pu lmonary arterial hypertension. There are no discrete intraluminal filling defects within the pulmona ry artery to suggest an acute central pulmonary embolism with overall limited assessment of the more peripheral vessels due to motion artifact. Cardiomegaly with prominent right-sided heart enlargement which may be related to underlying pulmonar y arterial hypertension and clinical correlation is recommended. Bilateral airspace opacities / pneumonia. Recommend follow-up imaging. Indeterminate low-density lesions within the liver are not significantly changed as compared to prior imaging and may represent cysts. Prominent right hilar lymphoid tissue which may be reactive in nature though follow-up imaging is rec ommended. All CT scans are performed using dose optimization techniques as appropriate to the performed exam an d include at least one of the following: Automated exposure control, adjustment of the mA and/or kV according t o size, and the use of iterative reconstruction technique.
[2021-02-23] MEDS ORDERED: ROCEPHIN 1 GM/50 ML D5W 1 GM/50 ML BAG IV STA (09:33)
[2021-02-23] MEDS ORDERED: TYLENOL PO PRN (09:34)
[2021-02-23] MEDS ORDERED: ZITHROMAX PO ONE (09:34)
[2021-02-23] MEDS ORDERED: SODIUM CHLORIDE 1,000 ML IV STA (10:30)
[2021-02-23] MEDS ORDERED: VEKLURY 200 MG in SODIUM CHLORIDE 250 ML IV ONE ×2 (11:00→12:00)
[2021-02-23 11:40] VITALS: BMI 20.1
[2021-02-23 11:42] LABS: PROTHROMBIN TIME 10.8 SEC (9.3-11.0)
[2021-02-23] MEDS: LOVENOX SUBCUT SCH (12:40)
[2021-02-24 06:04] LABS: BASOPHILS % (AUTO) 0.2 % (0.0-3.0); EOSINOPHILS % (AUTO) 0.2 % (0.0-7.0); HEMATOCRIT 35.9 % (37.0-47.0); HEMOGLOBIN 11.4 g/dl (12.0-16.0); IMMATURE GRANULOCYTE % (AUTO) 0.3 % (0.0-5.0); LYMPHOCYTES # (AUTO) 1.4 K/uL (0.60-3.4); LYMPHOCYTES % (AUTO) 22.4 (10.0-50.0); MEAN CORPUSCULAR HEMOGLOBIN 29.2 pg (27.0-31.0); MEAN CORPUSCULAR HGB CONC 31.8 (31.8-35.4); MEAN CORPUSCULAR VOLUME 92.1 fl (81.0-99.0); MONOCYTES # (AUTO) 0.4 K/uL (0.4-2.0); MONOCYTES % (AUTO) 6.6 (0-10); NEUTROPHILS # (AUTO) 4.5 K/ul (2.0-6.9); NEUTROPHILS % (AUTO) 70.3 % (42.2-75.2); PLATELET COUNT 161 10^3/uL (140-440); RDW COEFFICIENT OF VARIATION 13.9 % (11.6-14.8); WHITE BLOOD COUNT 6.34 K/ul (4.6-10.2)
[2021-02-24 06:27] LABS: PROTHROMBIN TIME 11.1 SEC (9.3-11.0)
[2021-02-24 06:28] LABS: BLOOD UREA NITROGEN 17.4 mg/dL (7-17); CALCIUM 8.04 mg/dL (8.4-10.2); CARBON DIOXIDE 27.9 mmol/L (22-30.0); CHLORIDE 101.7 mmol/L (98-107); CREATININE 0.72 mg/dL (0.60-1.30); GLUCOSE 85.4 mg/dL (74-106); POTASSIUM 3.49 mmol/L (3.5-5.1); SODIUM 136.6 mmol/L (134.5-145)
[2021-02-24 09:15] LABS: ALANINE AMINOTRANSFERASE 6.1 U/L (0-35); ALBUMIN 3.24 g/dL (3.5-5.0); ALKALINE PHOSPHATASE 70.9 U/L (38-126); ASPARTATE AMINO TRANSFERASE 32.2 U/L (14-36); BILIRUBIN,TOTAL 0.25 mg/dL (0.2-1.3); TOTAL PROTEIN 6.16 g/dL (6.3-8.2)
[2021-02-24] MEDS: ZITHROMAX PO SCH (10:01)
[2021-02-24] MEDS: LOVENOX SUBCUT SCH (10:02)
[2021-02-24] MEDS: ROCEPHIN 1 GM/50 ML D5W 1 GM/50 ML BAG IV SCH (10:02)
[2021-02-24] MEDS: VEKLURY 100 MG in SODIUM CHLORIDE 250 ML IV SCH (13:11)
[2021-02-24] MEDS ORDERED: LOMOTIL PO PRN (16:22)
[2021-02-24] MEDS ORDERED: DIFLUCAN PO SCH (16:30)
[2021-02-24] MEDS ORDERED: VENTOLIN HFA (PER PUFF-WITH SPACER) IH SCH (17:00)
[2021-02-24] MEDS ORDERED: DIFLUCAN PO PRN (17:00)
[2021-02-24 17:09] LABS: ABG O2 HGB 94.9 % (95-100); ABG PH 7.44 (7.35-7.45); COHb 1.7 (0.5-1.5); HCO3 29.2 (21-28); MetHb 1.1 (0-1.5); TCO2 30.5 (19-24); tHb 11.5 g/dl (11.7-17.4)
[2021-02-24] MEDS: PEPCID PO SCH (17:18)
[2021-02-24] MEDS: DECADRON IM SCH (17:19)
[2021-02-24] MEDS: ZINC-220 PO SCH (17:19)
[2021-02-24] MEDS: VITAMIN D PO SCH (17:19)
[2021-02-24] MEDS: VENTOLIN HFA (PER PUFF-WITH SPACER) IH SCH (20:15)
[2021-02-24] MEDS: SYMBICORT 160-4.5 MCG INHALER IH SCH (21:32)
[2021-02-25] MEDS: VENTOLIN HFA (PER PUFF-WITH SPACER) IH SCH ×3 (04:15→20:30)
[2021-02-25 05:43] LABS: HEMATOCRIT 34.7 % (37.0-47.0); HEMOGLOBIN 11.3 g/dl (12.0-16.0); IMMATURE GRANULOCYTE % (AUTO) 0.4 % (0.0-5.0); LYMPHOCYTES # (AUTO) 0.6 K/uL (0.60-3.4); LYMPHOCYTES % (AUTO) 22.9 (10.0-50.0); MEAN CORPUSCULAR HEMOGLOBIN 29.3 pg (27.0-31.0); MEAN CORPUSCULAR HGB CONC 32.6 (31.8-35.4); MEAN CORPUSCULAR VOLUME 89.9 fl (81.0-99.0); MONOCYTES # (AUTO) 0.1 K/uL (0.4-2.0); MONOCYTES % (AUTO) 3.6 (0-10); NEUTROPHILS # (AUTO) 2.1 K/ul (2.0-6.9); NEUTROPHILS % (AUTO) 73.1 % (42.2-75.2); PLATELET COUNT 180 10^3/uL (140-440); RDW COEFFICIENT OF VARIATION 13.3 % (11.6-14.8); RED BLOOD COUNT 3.86 10^6/ul (4.20-5.40)
[2021-02-25 05:52] LABS: BEecf 0.6 (-2.0-3.0); HCO3 25.4 (21-28)
[2021-02-25 05:53] LABS: ABG O2 HGB 91.5 % (95-100); COHb 1.7 (0.5-1.5); TCO2 26.7 (19-24); sO2 92.4 % (94-98); tHb 11.6 g/dl (11.7-17.4)
[2021-02-25 05:57] LABS: ALANINE AMINOTRANSFERASE 7.9 U/L (0-35); ALBUMIN 3.38 g/dL (3.5-5.0); ASPARTATE AMINO TRANSFERASE 33.8 U/L (14-36); BILIRUBIN,TOTAL 0.15 mg/dL (0.2-1.3); BLOOD UREA NITROGEN 17.7 mg/dL (7-17); CALCIUM 8.45 mg/dL (8.4-10.2); CARBON DIOXIDE 26.3 mmol/L (22-30.0); CREATININE 0.55 mg/dL (0.60-1.30); GLUCOSE 183.2 mg/dL (74-106); TOTAL PROTEIN 6.22 g/dL (6.3-8.2)
[2021-02-25] MEDS: PEPCID PO SCH ×2 (06:04→17:17)
[2021-02-25 06:23] LABS: PROTHROMBIN TIME 10.9 SEC (9.3-11.0)
[2021-02-25 06:26] LABS: TROPONIN I < 0.012 ng/ml (0.0000-0.120)
[2021-02-25] MEDS: ZINC-220 PO SCH (08:52)
[2021-02-25] MEDS: VITAMIN D PO SCH (08:52)
[2021-02-25] MEDS: ROCEPHIN 1 GM/50 ML D5W 1 GM/50 ML BAG IV SCH (08:53)
[2021-02-25] MEDS: ZITHROMAX PO SCH (08:53)
[2021-02-25] MEDS: SYMBICORT 160-4.5 MCG INHALER IH SCH ×2 (08:53→20:19)
[2021-02-25] MEDS: DECADRON IM SCH (08:53)
[2021-02-25] MEDS: LOVENOX SUBCUT SCH (08:53)
[2021-02-25] MEDS ORDERED: ZYRTEC PO ONE (09:25)
--- NOTE | 2021-02-25 10:11 | PCM.HOSP ---
Initial Hospital Care [id number] 30 Minutes Bedside ([id number]): 20
[2021-02-25] MEDS ORDERED: PEPCID IVP ONE (11:00)
[2021-02-25] MEDS ORDERED: CLARITIN PO ONE (11:00)
[2021-02-25] MEDS: PEPCID IVP ONE ×2 (11:46→11:47)
[2021-02-25] MEDS ORDERED: TYLENOL PO PRN (12:20)
--- NOTE | 2021-02-25 12:39 | PCM.PROG ---
Date Seen by Provider: 02/25/21 Time Seen by Provider: 09:00 Subjective: requests she be on her diazepam to avoid menieres symptoms - prescribed by her ENT Objective: Vitals: T=97.7 F, P=62, R=27, BP=88/59, SPO2=96 HEENT: / no jaundice /no swallowing difficulties ] Neck: [moves neck easily ] Lungs: [ clear with no stridor, rales , wheeze . occasional rho] CVS: [regular ] Abdomen: [nontender] Extremities: [from] Neurological: [intact ] Skin: [no rash] Lab/Tests/Diagnostic Imaging: [] Plan: 1.Stop narosyn andd myoflex for bilateral shoulder pain 2.Stop omeprazole trial of famotidine 20mg bid 3.Zyrtec 10mg po daily 4. Not continue cyclobenzaprine 5. add HgBA1C 6.2 gm salt diet and 1800 jannette diet 7.morning labs 8.Diazepam - 1 mg po bid for menieres - her ent prescribes - will use 2 mg instead of 5 mg as she has no sx currently and has been off since admission. She does take it daily
[2021-02-25] MEDS ORDERED: MYOFLEX TP PRN ×2 (12:59→13:30)
[2021-02-25] MEDS: VEKLURY 100 MG in SODIUM CHLORIDE 250 ML IV SCH (13:04)
[2021-02-25] MEDS: SODIUM CHLORIDE 1,000 ML IV SCH (13:20)
[2021-02-25] MEDS: VALIUM PO SCH (20:16)
[2021-02-26 04:14] LABS: C-REACTIVE PROTEIN 67 mg/L (0-10)
[2021-02-26] MEDS: VENTOLIN HFA (PER PUFF-WITH SPACER) IH SCH ×3 (05:17→19:55)
[2021-02-26 05:19] LABS: BASOPHILS % (AUTO) 0.1 % (0.0-3.0); HEMATOCRIT 34.6 % (37.0-47.0); HEMOGLOBIN 11.2 g/dl (12.0-16.0); IMMATURE GRANULOCYTE # (AUTO) 0.1 (0.0-1.0); IMMATURE GRANULOCYTE % (AUTO) 0.7 % (0.0-5.0); LYMPHOCYTES % (AUTO) 7.7 (10.0-50.0); MEAN CORPUSCULAR HEMOGLOBIN 28.9 pg (27.0-31.0); MEAN CORPUSCULAR HGB CONC 32.4 (31.8-35.4); MEAN CORPUSCULAR VOLUME 89.2 fl (81.0-99.0); MONOCYTES # (AUTO) 0.5 K/uL (0.4-2.0); MONOCYTES % (AUTO) 3.7 (0-10); NEUTROPHILS # (AUTO) 11.1 K/ul (2.0-6.9); NEUTROPHILS % (AUTO) 87.8 % (42.2-75.2); PLATELET COUNT 245 10^3/uL (140-440); RDW COEFFICIENT OF VARIATION 13.2 % (11.6-14.8); RED BLOOD COUNT 3.88 10^6/ul (4.20-5.40); WHITE BLOOD COUNT 12.65 K/ul (4.6-10.2)
[2021-02-26 05:32] LABS: BEecf -1.3 (-2.0-3.0); COHb 1.5 (0.5-1.5); HCO3 23.5 (21-28); MetHb 1.4 (0-1.5); TCO2 24.7 (19-24); sO2 95.2 % (94-98); tHb 20.9 g/dl (11.7-17.4)
[2021-02-26 05:33] LABS: ABG O2 HGB 92.5 % (95-100)
[2021-02-26 05:34] LABS: ALBUMIN 3.51 g/dL (3.5-5.0); ASPARTATE AMINO TRANSFERASE 29.9 U/L (14-36); BILIRUBIN,TOTAL 0.13 mg/dL (0.2-1.3); BLOOD UREA NITROGEN 13.8 mg/dL (7-17); CALCIUM 8.73 mg/dL (8.4-10.2); CARBON DIOXIDE 24.7 mmol/L (22-30.0); CREATININE 0.56 mg/dL (0.60-1.30); GLUCOSE 144.7 mg/dL (74-106); POTASSIUM 3.83 mmol/L (3.5-5.1); SODIUM 140.3 mmol/L (134.5-145); TOTAL PROTEIN 6.44 g/dL (6.3-8.2)
[2021-02-26 05:37] LABS: PROTHROMBIN TIME 11.3 SEC (9.3-11.0)
[2021-02-26 05:43] LABS: TROPONIN I < 0.012 ng/ml (0.0000-0.120)
[2021-02-26] MEDS: PEPCID PO SCH ×2 (05:45→16:43)
--- NOTE | 2021-02-26 08:15 | PCM.PROG ---
Date Seen by Provider: 02/24/21 Time Seen by Provider: 13:30 Subjective: Hospitalized with COVID Pneumonia.States still SOB and congested but improved. On Remdesivir therapy Objective: Vitals: T=97.7 F, P=70, R=20, YT=657/70, SPO2=97 HEENT: Clear Neck: Supple Lungs: Overall CTA w/o wheezing or congestion CVS: HRRR w/o M Abdomen: Soft, Non tender; BS normal active Extremities: Neg Clubbing, cyanosis Neurological: AAOx3; No focal deficit Skin: Normal color Lab/Tests/Diagnostic Imaging: [] (1) COVID-19: Status: Acute Code(s): U07.1 - COVID-19 SNOMED Code(s): 211613477 (2) Pneumonia due to 2019 novel coronavirus: Status: Acute Code(s): U07.1 - COVID-19; J12.82 - Pneumonia due to coronavirus disease 2019 SNOMED Code(s): 363080279113997009 Assessment: Improving (3) Respiratory failure with hypoxia: Status: Acute Code(s): J96.91 - Respiratory failure, unspecified with hypoxia SNOMED Code(s): 28896229858538167 Assessment: Improving- (4) SOB (shortness of breath) on exertion: Status: Acute Code(s): R06.02 - Shortness of breath SNOMED Code(s): 31921123 Plan: Continue present therapy Review Meds Repeat Lab in AM
--- NOTE | 2021-02-26 08:18 | PCM.PROG ---
Date Seen by Provider: 02/26/21 Time Seen by Provider: 07:45 Subjective: "I am feeling better"; "My Rt Arm and shoulder hurting"; onset prior to admission, No rememberanc of injury. " My arm and muscle feels funny- weak and aches with any movement Objective: Vitals: T=97.7 F, P=70, R=20, JC=010/70, SPO2=97 HEENT: Clear Neck: Supple , no tenderness Lungs: CTA CVS: HRRR Abdomen: Soft, non tender Extremities: Rt Arm/shoulder-painful to palpation; increased pain with movemnt. Neurological: NOMAL Skin: WNL Lab/Tests/Diagnostic Imaging: [] (1) COVID-19: Status: Acute Code(s): U07.1 - COVID-19 SNOMED Code(s): 793489497 (2) Pneumonia due to 2019 novel coronavirus: Status: Acute Code(s): U07.1 - COVID-19; J12.82 - Pneumonia due to coronavirus disease 2019 SNOMED Code(s): 352343548193570053 (3) Respiratory failure with hypoxia: Status: Acute Code(s): J96.91 - Respiratory failure, unspecified with hypoxia SNOMED Code(s): 42332150038037019 (4) SOB (shortness of breath) on exertion: Status: Acute Code(s): R06.02 - Shortness of breath SNOMED Code(s): 12898710 (5) Biceps tendonosis of right shoulder: Status: Acute Code(s): M67.813 - Other specified disorders of tendon, right shoulder SNOMED Code(s): 32214273488821330 Plan: Xray Rt Shoulder Begin analgesics for pain Avoid NSAIDS due to Meniere's follow up CXR in AM
[2021-02-26] MEDS ORDERED: DIFLUCAN PO SCH (09:00)
[2021-02-26] MEDS: VITAMIN D PO SCH (09:10)
[2021-02-26] MEDS: ZITHROMAX PO SCH (09:11)
[2021-02-26] MEDS: DECADRON IM SCH (09:11)
[2021-02-26] MEDS: VALIUM PO SCH ×2 (09:11→20:47)
[2021-02-26] MEDS: ZINC-220 PO SCH (09:11)
[2021-02-26] MEDS: LOVENOX SUBCUT SCH (09:12)
[2021-02-26] MEDS: ROCEPHIN 1 GM/50 ML D5W 1 GM/50 ML BAG IV SCH (09:13)
[2021-02-26] MEDS: SYMBICORT 160-4.5 MCG INHALER IH SCH ×2 (09:17→20:47)
[2021-02-26] MEDS: VEKLURY 100 MG in SODIUM CHLORIDE 250 ML IV SCH (13:59)
[2021-02-26] MEDS ORDERED: TYLENOL PO PRN (19:56)
--- NOTE | 2021-02-26 23:43 | DI ---
EXAM: PA and lateral views of the chest. HISTORY: Shortness of breath. COVID-19 positive. FINDINGS: The bones are unremarkable. The cardiac silhouette and pulmonary vasculature are within no rmal limits. The costophrenic angles are clear. There are calcified granulomas. There are right ba silar infiltrates, suspicious for pneumonia. Impression: Right basilar infiltrates, suspicious for pneumonia.
--- NOTE | 2021-02-26 23:45 | DI ---
Exam: Right humerus two-view History: Pain Findings / impression: No bony abnormality of the humerus. Negative exam.
--- NOTE | 2021-02-26 23:46 | DI ---
EXAM: Three-view right shoulder. HISTORY: Shoulder pain. No known injury. FINDINGS: The bones are intact with no evidence of fracture. The acromioclavicular joint is maintain ed. Evaluation of the glenohumeral joint is limited without a Y-view. No soft tissue abnormality. Impression: Negative right shoulder as described.
[2021-02-27] MEDS: SODIUM CHLORIDE 1,000 ML IV SCH (01:55)
[2021-02-27] MEDS: VENTOLIN HFA (PER PUFF-WITH SPACER) IH SCH (04:45)
[2021-02-27 04:47] LABS: ABG O2 HGB 91.4 % (95-100); ABG PH 7.42 (7.35-7.45); BEecf -0.5 (-2.0-3.0); MetHb 1.2 (0-1.5); TCO2 25.1 (19-24); sO2 93.4 % (94-98); tHb 18.1 g/dl (11.7-17.4)
[2021-02-27] MEDS: PEPCID PO SCH (05:43)
[2021-02-27 05:56] LABS: ALANINE AMINOTRANSFERASE 14.7 U/L (0-35); ALBUMIN 3.61 g/dL (3.5-5.0); ALKALINE PHOSPHATASE 73.8 U/L (38-126); BILIRUBIN,TOTAL 0.17 mg/dL (0.2-1.3); BLOOD UREA NITROGEN 12.7 mg/dL (7-17); CALCIUM 8.82 mg/dL (8.4-10.2); CARBON DIOXIDE 26.4 mmol/L (22-30.0); CHLORIDE 106.3 mmol/L (98-107); CREATININE 0.51 mg/dL (0.60-1.30); GLUCOSE 139.9 mg/dL (74-106); POTASSIUM 3.7 mmol/L (3.5-5.1); SODIUM 139.5 mmol/L (134.5-145); TOTAL PROTEIN 6.61 g/dL (6.3-8.2)
[2021-02-27 06:01] LABS: PROTHROMBIN TIME 10.9 SEC (9.3-11.0)
[2021-02-27 06:09] VITALS: TEMP 97.9
[2021-02-27 06:10] LABS: TROPONIN I < 0.012 ng/ml (0.0000-0.120)
[2021-02-27 06:33] LABS: C-REACTIVE PROTEIN 35 mg/L (0-10)
[2021-02-27] MEDS: LOVENOX SUBCUT SCH (10:25)
[2021-02-27] MEDS: VALIUM PO SCH (10:25)
[2021-02-27] MEDS: VITAMIN D PO SCH (10:26)
[2021-02-27] MEDS: ZINC-220 PO SCH (10:26)
[2021-02-27] MEDS: DECADRON IM SCH (10:27)
[2021-02-27] MEDS ORDERED: VEKLURY 100 MG in SODIUM CHLORIDE 250 ML IV ONE (10:30)
[2021-02-27] MEDS: SYMBICORT 160-4.5 MCG INHALER IH SCH (10:30)
[2021-02-27 10:57] VITALS: BP 91/67
--- NOTE | 2021-02-27 12:03 | PCM.PROG ---
Date Seen by Provider: 02/27/21 Time Seen by Provider: 09:00 Subjective: Feels better, breathing better. Denies any chest pain. Continues to have a lingering non productive cough. Objective: Vitals: T=97.9 F, P=72, R=20, BP=91/67, SPO2=98 HEENT: [mucus membreanes moist ] Neck: [Supple No JVD ] Lungs: [mild Scattered Rhonchi otherwise clear] CVS: [Regular S1 and S 2 no Murmur] Abdomen: [Soft Not tender to palpation] Extremities: [No edema ] Neurological: [Awake and alert no focal deficties ] Skin: [No rash] Lab/Tests/Diagnostic Imaging: [] (1) COVID-19: Status: Acute Code(s): U07.1 - COVID-19 SNOMED Code(s): 126329701 Assessment: Improved getting last dose of Remdesivir (2) Pneumonia due to 2019 novel coronavirus: Status: Acute Code(s): U07.1 - COVID-19; J12.82 - Pneumonia due to coronavirus disease 2019 SNOMED Code(s): 198463706581184919 Assessment: Completed 5 days of Iv Rocephin and 5 days of Zithromax. (3) Respiratory failure with hypoxia: Status: Acute Code(s): J96.91 - Respiratory failure, unspecified with hypoxia SNOMED Code(s): 44649371401857470 Assessment: Improved no longer needing oxygen saturation 98 % on room air (4) SOB (shortness of breath) on exertion: Status: Acute Code(s): R06.02 - Shortness of breath SNOMED Code(s): 21321533 Assessment: Resoved. (5) Biceps tendonosis of right shoulder: Status: Acute Code(s): M67.813 - Other specified disorders of tendon, right shoulder SNOMED Code(s): 42681528671503734 Assessment: No fractures on x rays done last night Plan: Discharge home today with follow up with PCP in 3-5 days
--- NOTE | 2021-02-27 12:07 | PCM.DC ---
Final Diagnosis: COVID-19 Pneumonia Community acquired Pneumonia Shoulder sprain Respiratory failure due to COVID -19 pneumonia (1) COVID-19: Status: Acute Code(s): U07.1 - COVID-19 SNOMED Code(s): 549708437 (2) Pneumonia due to 2019 novel coronavirus: Status: Acute Code(s): U07.1 - COVID-19; J12.82 - Pneumonia due to coronavirus disease 2019 SNOMED Code(s): 282787433167822634 (3) Respiratory failure with hypoxia: Status: Acute Code(s): J96.91 - Respiratory failure, unspecified with hypoxia SNOMED Code(s): 03444757207843751 Qualifiers: Chronicity: acute Qualified Code(s): J96.01 - Acute respiratory failure with hypoxia (4) SOB (shortness of breath) on exertion: Status: Acute Code(s): R06.02 - Shortness of breath SNOMED Code(s): 45207030 (5) Biceps tendonosis of right shoulder: Status: Acute Code(s): M67.813 - Other specified disorders of tendon, right shoulder SNOMED Code(s): 68456154971264929 Reason for Hospitalization: Respiratory failure needing oxgyen and inhalers Needed IV antibiotics including IV Remdesivir and Steroids Prognosis at Discharge: Good Condition at Discharge: Stable with nor mal oxygen saturation on room air Medications at Discharge: Ambulatory Orders Medication Instructions Recorded acetaminophen 325 mg tablet 325 mg PO PRN PRN 10/16/18 (Tylenol) naproxen 500 mg tablet 500 mg PO BID PRN #100 tab 01/08/20 atorvastatin 20 mg tablet See Rx Instructions .ROUTE 07/18/20 .COMPLEX #90 unspecified diazepam 5 mg tablet 5 mg PO BID-TID PRN #90 tab 11/05/20 cyclobenzaprine 5 mg tablet 5 mg PO DAILY #50 tab 11/25/20 omeprazole 20 mg capsule,delayed See Rx Instructions .ROUTE 02/05/21 release .COMPLEX #90 cap Education Provided to Patient and Family: quit smoking Follow-ups: with PCP in 3-5 days return to ER if worse. Discharge Disposition: Home Hospital Course: Progressed with over the last 4 days with deceasing oxygen needs and improved exercise tolerance Tolerated medications well Plan: Discharge home to self care
[2021-02-28 08:14] LABS: C-REACTIVE PROTEIN 19 mg/L (0-10)
== END 2021-02-27 13:15 | disposition home or self-care (01) | DRG 193 ==
LOC: ED 05:51 → SCU 09:43
PROVIDERS: ADMIT Internal Medicine Geriatric Medicine; ATTEND Emergency Medicine
DX: R06.02 Shortness of breath; R50.9 Fever, unspecified; J12.82 Pneumonia due to coronavirus disease 2019; J96.01 Acute respiratory failure with hypoxia; M67.813 Other specified disorders of tendon, right shoulder